=== PATIENT | female | born 2000 | race Caucasian/White ===

== ENCOUNTER → 2023-01-12 09:53 | Outpatient (CLI) | payer BC, SELFPAY ==
--- NOTE | ~2023-01-12 | US_ITS ---
Thyroid ultrasound. Clinical History: Enlarged thyroid gland Findings: Real-time sonography of the thyroid gland was performed. The right lobe measures 5.2 x 1.5 x 1.3 cm. The left lobe measures 5.0 x 1.3 x 1.5 cm. The isthmus is 5 mm in AP diameter. Thyroid parenchyma is homogeneous. No thyroid nodule identified. Impression: Unremarkable exam. Reviewed, dictated and finalized at location . Impression: Unremarkable exam.
== END ==
PROVIDERS: PCP Registered Nurse; Visit Provider Registered Nurse
DX: E04.9 Nontoxic goiter, unspecified (principal)
CPT/HCPCS: 76536

== ENCOUNTER → 2023-01-14 10:53 | Outpatient (CLI) | payer BC, SELFPAY ==
--- NOTE | ~2023-01-14 | US_ITS ---
EXAMINATION: US OB <=14 wk fetus w TV DATE: 01/14/2023 11:24 INDICATION: First trimester dating TECHNIQUE: Real-time pelvic transabdominal and transvaginal ultrasound was performed. COMPARISON: None. FINDINGS: The uterus measures 9.2 x 4.7 x 6 cm. There is an intrauterine gestational sac. A yolk sac is identified. heart motion is identified measuring 142 beats per minute (bpm) by M-mode Dopple r. The crown rump length measures 9 mm, which correlates with an estimated gestational age of 6 weeks and 6 day(s) (+/-) 4 day(s). The ovaries are not visualized however no adnexal abnormality is seen. There is no free fluid in the pelvis. IMPRESSION: 1. Live intrauterine with an estimated gestational age of 6 weeks and 6 day(s) (+/-) 4 day( s) and an estimated delivery date of 09/03/2023. Reviewed, dictated and finalized at location A. IMPRESSION: 1. Live intrauterine with an estimated gestational age of 6 weeks and 6 day(s) (+/-) 4 day(s) and an estimated delivery date of 09/03/2023.
== END ==
PROVIDERS: PCP Registered Nurse; Visit Provider Registered Nurse
DX: Z36.9 Encounter for antenatal screening, unspecified (principal); Z3A.01 Less than 8 weeks gestation of pregnancy
CPT/HCPCS: 76801; 76817

== ENCOUNTER 2023-04-06 15:24 | Outpatient (CLI) | payer BC, SELFPAY ==
--- NOTE | 2023-04-06 15:52 | ECG_ITS ---
Measurements Intervals [place] Rate: 79 P: 5 W[place]: 156 QRS: 60 QRSD: 86 T: 34 QT: 360 QTc: 413 Interpretive Statements SINUS RHYTHM RSR' IN V1 OR V2, PROBABLY NORMAL VARIANT BORDERLINE ECG NO PREVIOUS ECG AVAILABLE FOR COMPARISON Electronically Signed On 04-06-2023 16:13:40 CDT by Leodan Souza D.O.
--- NOTE | 2023-04-12 07:44 | WPDHOLTEREM ---
Holter/Event Monitor Holter/Event Monitor Date of procedure: 04/06/23 Holter/Event Procedure: 24 Hr Holter Monitor Indications: Palpitations Conclusion: 1. 24 hour holter monitor on 04/06/23. 2. Underlying rhythm is sinus rhythm. HR range 54-148 bpm; average 90 bpm. HR at 148 bpm was at 07:03. 3. There are 12 premature supraventricular complexes. No supraventricular tachycardia. 4. No premature ventricular complexes. No ventricular tachycardia. 5. No sinoatrial or atrioventricular blocks. No significant pauses greater than 2 seconds. 6. No symptoms available for correlation.
== END 2023-04-06 15:25 | disposition home or self-care (01) ==
PROVIDERS: PCP Registered Nurse; Visit Provider Registered Nurse
DX: R00.2 Palpitations (principal)
CPT/HCPCS: 36415; 84443; 93005; 93225; 93226

== ENCOUNTER 2023-08-10 08:45 | Outpatient (CLI) | payer BC, SELFPAY ==
--- NOTE | ~2023-08-10 | US_ITS ---
EXAMINATION: US OB limited DATE: 08/10/2023 11:55 INDICATION: Leakage of fluid. Third trimester. TECHNIQUE: Real-time ultrasound of the pelvis was performed. COMPARISON: Ultrasound 01/14/2023 FINDINGS: There is a single fetus in vertex presentation. The placenta is anterior. heart rate is 130 be ats per minute (bpm). The amniotic fluid index is 13.6 cm, which is normal. IMPRESSION: 1. Single living fetus in vertex presentation. 2. Normal amniotic fluid index. Reviewed, dictated and finalized at location A. INER TENDER
[2023-08-10 09:18] VITALS: BP 115/71; PULSE 103; PULSE 99; RESP 16; TEMP 37
[2023-08-10 09:34] VITALS: BP 115/71; PULSE 103
--- NOTE | 2023-08-10 10:32 | PC.NURSE ---
Dr. Mcginnis returned page and informed of reactive NST, ROM plus was negative, and RAVI 13.6 cm. OK to discharge to home.
== END 2023-08-10 10:35 | disposition home or self-care (01) ==
LOC: ANHOBOP 08:48 → ANHLDR 08:49
PROVIDERS: Visit Provider Obstetrics & Gynecology
DX: O42.90 Premature rupture of membranes, unspecified as to length of time between rupture and onset of labor, unspecified weeks of gestation (principal); Z3A.00 Weeks of gestation of pregnancy not specified
CPT/HCPCS: 59025; 76815; 84112; 99199

== ENCOUNTER 2023-08-18 16:03 | Outpatient (RCR) | payer BC, SELFPAY ==
[2023-08-18 16:33] VITALS: BP 116/71; PULSE 84
== END 2023-11-02 23:59 | disposition home or self-care (01) ==
LOC: ANHOBOP 16:03
PROVIDERS: Visit Provider Obstetrics & Gynecology
DX: O36.8330 Maternal care for abnormalities of the fetal heart rate or rhythm, third trimester, not applicable or unspecified (principal); Z3A.36 36 weeks gestation of pregnancy; O36.63X0 Maternal care for excessive fetal growth, third trimester, not applicable or unspecified; Z3A.38 38 weeks gestation of pregnancy
CPT/HCPCS: 59025

== ENCOUNTER 2023-08-20 19:17 | Inpatient (IN) | payer BC, SELFPAY ==
[2023-08-20] VITALS (13 sets, daily range): BP systolic 109–148; BP diastolic 62–93; PULSE 83–119; RESP 15–17; TEMP 36.8–36.9; BMI 30.4
--- NOTE | 2023-08-20 19:17 | LDADM ---
This patient, Leona Barnett, was admitted to Labor/Delivery/Recovery 104 on 08/20/23 at 19:17. Plans for labor, pain management and were discussed with patient. Patient/family oriented to hospital policies and general routines including ID bracelet, bed and alarms, visiting hours, pain management, procedures, bathroom and other care routines, personal items, smoking policy, room service/diet and guest tray routines, infant security routines, and visiting hours. Patient/Family are encouraged to report perceived risks to care and to ask questions if they do not understand what they are told or what they should do. See OBIX for further documentation.
[2023-08-20 20:13] LABS: Basophils Percent Auto 0.4 % (0.2-1.2); Eosinophils Absolute Auto 0.1 K/mm3 (0-0.3); Eosinophils Percent Auto 0.9 % (0-4.4); Hematocrit 35.9 % (37.0-47.0); Hemoglobin 11.6 g/dL (12.0-15.0); Immature Granulocyte Absolute 0.19 K/mm3 (0.00-0.031); Immature Granulocyte Percent A 1.8 % (0-0.5); Lymphocytes Absolute Auto 2.22 K/mm3 (0.9-3.2); Mean Corpuscular HGB Conc 32.3 g/dl (32-36); Mean Corpuscular Hemoglobin 29.1 pg (26-34); Mean Platelet Volume 10.3 fl (7.4-10.4); Monocytes Absolute Auto 0.8 K/mm3 (0.1-0.6); Neutrophils Absolute Auto 7.2 K/mm3 (1.3-6.7); Neutrophils Percent Auto 67.9 % (45.5-73.1); Platelet Count Result 195 k/mm3 (150-375); Red Blood Count 3.99 M/mm3 (4.2-5.4); Red Cell Distribution Width 13.2 % (11.5-14.5); White Blood Count 10.6 K/mm3 (4.5-10.0)
[2023-08-20 20:25] LABS: Alanine Aminotransferase 21 U/L (6-35); Albumin Level 3.6 g/dL (3.5-5.1); Alkaline Phosphatase 155 U/L (38-126); Anion Gap 6 mmol/L (8-16); Aspartate Amino Transferase 25 U/L (14-36); Bilirubin,Total 0.2 mg/dL (0.2-1.3); Blood Urea Nitrogen 8 mg/dL (7-17); Carbon Dioxide 22 mmol/L (22-30); Chloride 108 mmol/L (98-107); Estimated Glomerular Filt Rate > 60; Glucose 94 mg/dL (65-110); Potassium 3.6 mmol/L (3.4-5.0); Sodium 136 mmol/L (137-145)
[2023-08-20 21:05] LABS: HIV 1/2 Ab P24 Ag Result Negative (Negative)
[2023-08-20] MEDS: LACTATED RINGERS 1,000 ML 125 ML IV CONT (21:20)
[2023-08-20] MEDS: OXYTOCIN 30 UNITS/NS 500 ML 30 UNITS/500 ML BAG 6 UNITS IV CONT (21:20)
[2023-08-21] VITALS (315 sets, daily range): BP systolic 97–222; BP diastolic 42–200; PULSE 82–144; RESP 15–19; TEMP 36.6–38.6; O2SAT 95–100
[2023-08-21] MEDS: LACTATED RINGERS 1,000 ML 125 ML IV CONT ×3 (01:25→14:59)
--- NOTE | 2023-08-21 01:31 | WPDANESEPP ---
Anes - Eval Pre Procedure Procedure: labor epidural Date/Time: 08/21/23 01:31 Surgeon: lesly Preop Diagnosis: pain during labor Pre Op Diagnosis: Leaking Patient Data Age: 23 Gender: F Height: 1.6 m Weight: 78 kg Last Vital Signs Temp 36.9 C 08/21/23 00:26 Pulse 89 08/21/23 00:31 Resp 16 08/21/23 00:26 BP 118/61 08/21/23 00:31 Pulse Ox 98 08/21/23 01:31 O2 Del Method Room Air 08/20/23 20:26 Allergies Allergy/AdvReac Type Severity Reaction Status Date / Time shellfish derived Allergy Intermediate Swelling Verified 08/20/23 20:34 of Lip/Tongue/Throat Home Medications Medication Instructions Recorded Confirmed Type albuterol sulfate 90 mcg/actuation 1 puff inhalation Q4H PRN 12/30/21 08/12/23 History aerosol inhaler Shortness Of Breath prenat.vits,casey,[id number] 1 tablet PO DAILY 01/07/23 08/20/23 History cholecalciferol (vitamin D3) 50 50 mcg PO DAILY 03/17/23 08/20/23 History mcg (2,000 unit) capsule ferrous sulfate 325 mg (65 mg 325 mg PO DAILY 06/09/23 08/20/23 History iron) tablet magnesium 200 mg tablet 400 mg PO DAILY 08/10/23 08/20/23 History Laboratory Tests 08/20/23 20:05 WBC 10.6 H K/mm3 (4.5-10.0) RBC 3.99 L M/mm3 (4.2-5.4) Hgb 11.6 L g/dL (12.0-15.0) Hct 35.9 L % (37.0-47.0) MCV 90.0 fl (80-100) MCH 29.1 pg (26-34) MCHC 32.3 g/dl (32-36) RDW 13.2 % (11.5-14.5) Plt Count 195 k/mm3 (150-375) MPV 10.3 fl (7.4-10.4) Immature Gran % (Auto) 1.8 H % (0-0.5) Neut % (Auto) 67.9 % (45.5-73.1) Lymph % (Auto) 21.0 % (18.3-44.2) [place] % (Auto) 8.0 % (2.6-8.5) Eos % (Auto) 0.9 % (0-4.4) Baso % (Auto) 0.4 % (0.2-1.2) Lymph # (Auto) 2.22 K/mm3 (0.9-3.2) [place] # (Auto) 0.8 H K/mm3 (0.1-0.6) Eos # (Auto) 0.1 K/mm3 (0-0.3) Baso # (Auto) 0.0 K/mm3 (0.0-0.1) Abs Immat Gran (auto) 0.19 H K/mm3 (0.00-0.031) Absolute Neuts (auto) 7.2 H K/mm3 (1.3-6.7) Absolute Nucleated RBC 0.0 K/mm3 (0.0-0.012) Nucleated RBC % 0.0 % (0.0-0.2) Sodium 136 L mmol/L (137-145) Potassium 3.6 mmol/L (3.4-5.0) Chloride 108 H mmol/L (98-107) Carbon Dioxide 22 mmol/L (22-30) Anion Gap 6 L mmol/L (8-16) BUN 8 mg/dL (7-17) Creatinine 0.50 L mg/dL (0.7-1.0) Estim Creat Clear Calc Not Reportable Estimated GFR > 60 (59 - ) Glucose 94 mg/dL (65-110) Uric Acid 4.0 mg/dL (2.5-7.5) Calcium 9.0 mg/dL (8.4-10.2) Total Bilirubin 0.2 mg/dL (0.2-1.3) AST 25 U/L (14-36) ALT 21 U/L (6-35) Alkaline Phosphatase 155 H U/L (38-126) Total Protein 6.0 L g/dL (6.3-8.2) Albumin 3.6 g/dL (3.5-5.1) RPR Pending HIV 1&2 Ab/P24 Ag 4thGn Negative (Negative) Blood Type O Positive Antibody Screen Negative Patient hx anesthesia problems: none Family hx anesthesia problems: none Results Review: All pre-operative results and documents have been reviewed as part of the pre-operative evaluation. REPLACED BY [facility] Past Medical History Medical History Asthma Encounter for related examination in second trimester Encounter for supervision of normal first in third trimester Heart palpitations Family History Family History Mother Alcoholism Sibling Depression Grandparent Alcoholism Diabetes mellitus Heart disease Social History Social History Smoking status: Never smoker Alcohol intake: former Alcohol use details: Not since Substance use: never Do You Feel Safe in your Home?: Yes Lack of Transportation: No Lack of Food: Never True Current Housing: I Have Housing Concerned About Future Housing: No Difficulty Paying G
--- NOTE | 2023-08-21 09:27 | PM.OBPNVD ---
OB - PN: Subj Subjective Date/time seen: 08/21/23 09:27 Interval history: fht 135, cat 1, irreg ctx, IUPC recently placed. Continue Pitocin. OB - PN: Obj Data Labs 08/20/23 20:05 08/20/23 20:05 Labs: Laboratory Results - last 24 hr 08/20/23 20:05 WBC 10.6 H RBC 3.99 L Hgb 11.6 L Hct 35.9 L MCV 90.0 MCH 29.1 MCHC 32.3 RDW 13.2 Plt Count 195 MPV 10.3 Immature Gran % (Auto) 1.8 H Neut % (Auto) 67.9 Lymph % (Auto) 21.0 [place] % (Auto) 8.0 Eos % (Auto) 0.9 Baso % (Auto) 0.4 Lymph # (Auto) 2.22 [place] # (Auto) 0.8 H Eos # (Auto) 0.1 Baso # (Auto) 0.0 Abs Immat Gran (auto) 0.19 H Absolute Neuts (auto) 7.2 H Absolute Nucleated RBC 0.0 Nucleated RBC % 0.0 Sodium 136 L Potassium 3.6 Chloride 108 H Carbon Dioxide 22 Anion Gap 6 L BUN 8 Creatinine 0.50 L Estim Creat Clear Calc Not Reportable Estimated GFR > 60 Glucose 94 Uric Acid 4.0 Calcium 9.0 Total Bilirubin 0.2 AST 25 ALT 21 Alkaline Phosphatase 155 H Total Protein 6.0 L Albumin 3.6 HIV 1&2 Ab/P24 Ag 4thGn Negative Blood Type O Positive Antibody Screen Negative OB - PN A/P Time Spent With Patient Time: Total time spent is greater than 50% in coordination of care (as documented) at patient's floor/unit and/or counseling patient:
--- NOTE | 2023-08-21 09:28 | PM.IMHP ---
H&P: HPI History of Present Illness Date/Time: 08/21/23 09:28 Chief Complaint: Leaking of fluid Narrative: Patient presented with c/o leaking of clear fluid at approximately 1800 on 08/20/22. Confirmed SROM on L and D. Cervix 1 cm, thick. PNC significant for LGA, normal glucose testing x 2, last ultrasound for growth 08/19- 4100gm. Labs reviewed. GBS neg. Review of Systems Review of Systems: All systems reviewed & are unremarkable except as noted in HPI and below Constitutional: Constitutional: Reports no additional constitutional complaints and Denies headache(s) Eyes: Eyes: Denies spots in vision ENT: Reports system reviewed and no additional complaints, except as documented and Denies headache(s) Cardiovascular: Cardiovascular: Denies chest pain and Denies dyspnea Respiratory: Respiratory: Denies dyspnea Gastrointestinal: Gastrointestinal: Reports no additional gastrointestinal complaints Genitourinary: Genitourinary: Reports amenorrhea Musculoskeletal: Musculoskeletal: Reports no additional musculoskeletal complaints Integumentary/Breasts: Skin/Breast: Denies breast mass and Denies rash Neurologic: Denies headache(s) Psychiatric: Psychiatric: Reports no additional psychiatric complaints [facility] Past Medical History Medical History Asthma Encounter for related examination in second trimester Encounter for supervision of normal first in third trimester Heart palpitations Family History Family History Mother Alcoholism Sibling Depression Grandparent Alcoholism Diabetes mellitus Heart disease Social History Social History Smoking status: Never smoker Alcohol intake: former Alcohol use details: Not since Substance use: never Do You Feel Safe in your Home?: Yes Lack of Transportation: No Lack of Food: Never True Current Housing: I Have Housing Concerned About Future Housing: No Difficulty Paying Gas/Electric Bills: No Difficulty Paying for Meds: No Currently Unemployed: No Education: Bachelor's Degree Difficulty w/ Childcare or Family Care: No Living arrangements: with family Occupation/Education: occupation Gender identity (if verbalized by the patient): Female Sexual Orientation (if Verbalized by the Patient): Straight or Heterosexual Spiritual care concerns: No Meds Home Medications and Allergies Home Medications Medication Instructions Recorded Confirmed Type albuterol sulfate 90 mcg/actuation 1 puff inhalation Q4H PRN 12/30/21 08/12/23 History aerosol inhaler Shortness Of Breath prenat.vits,casey,[id number] 1 tablet PO DAILY 01/07/23 08/20/23 History cholecalciferol (vitamin D3) 50 50 mcg PO DAILY 03/17/23 08/20/23 History mcg (2,000 unit) capsule ferrous sulfate 325 mg (65 mg 325 mg PO DAILY 06/09/23 08/20/23 History iron) tablet magnesium 200 mg tablet 400 mg PO DAILY 08/10/23 08/20/23 History Allergies Allergy/AdvReac Type Severity Reaction Status Date / Time shellfish derived Allergy Intermediate Swelling Verified 08/20/23 20:34 of Lip/Tongue/Throat Vital Signs Vital Signs - 24 hr 08/20/23 19:27 08/20/23 19:31 08/20/23 19:32 Temperature Pulse Rate 119 H 110 H 92 Respiratory Rate Blood Pressure 148/78 H 127/93 H 134/67 Pulse Oximetry Oxygen Delivery 08/20/23 20:31 08/20/23 20:59 08/20/23 21:27 Temperature 98.3 F Pulse Rate 100 96 Respiratory Rate 15 Blood Pressure 113/62 124/75 Pulse Oximetry Oxygen Delivery 08/20/23 19:28 08/20/23 21:31 08/20/23 22:01 Temperature 98.4 F Pulse Rate 95 92 Respiratory Rate 17 Blood Pressure 126/83 118/77 Pulse Oximetry Oxygen Delivery 08/20/23 22:31 08/20/23 23:08 08/20/23 22:52 Temperature 98.5 F Puls
[2023-08-21] MEDS: AMPICILLIN 2 GM/NS 100 ML 2 GM/100 ML BAG IVPB (12:01)
[2023-08-21] MEDS: AMPICILLIN 1 GM/NS 50 ML 1 GM/50 ML BAG IVPB ×2 (16:08→21:00)
[2023-08-21] MEDS: GENTAMICIN SULFATE INJ 390 MG in DEXTROSE 5% 100 ML 109.75 MG IVPB (16:57)
--- NOTE | 2023-08-21 17:12 | PM.OBPNVD ---
OB - PN: Subj Subjective Date/time seen: 08/21/23 17:12 Interval history: fht 150s, cat 2, temp 101, she has been pushing for over an hour, cervix C/C/0 and no descent, large caput, chorioamnionitis. She has been recommended for section for failure to progress. Discussed risk benefit of section and discussed that if she continues to push and no change then higher risk of distress, infection, bleeding. She agrees with section for failure to progress. OB - PN: Obj Data Labs 08/20/23 20:05 08/20/23 20:05 Labs: Laboratory Results - last 24 hr 08/20/23 20:05 WBC 10.6 H RBC 3.99 L Hgb 11.6 L Hct 35.9 L MCV 90.0 MCH 29.1 MCHC 32.3 RDW 13.2 Plt Count 195 MPV 10.3 Immature Gran % (Auto) 1.8 H Neut % (Auto) 67.9 Lymph % (Auto) 21.0 [place] % (Auto) 8.0 Eos % (Auto) 0.9 Baso % (Auto) 0.4 Lymph # (Auto) 2.22 [place] # (Auto) 0.8 H Eos # (Auto) 0.1 Baso # (Auto) 0.0 Abs Immat Gran (auto) 0.19 H Absolute Neuts (auto) 7.2 H Absolute Nucleated RBC 0.0 Nucleated RBC % 0.0 Sodium 136 L Potassium 3.6 Chloride 108 H Carbon Dioxide 22 Anion Gap 6 L BUN 8 Creatinine 0.50 L Estim Creat Clear Calc Not Reportable Estimated GFR > 60 Glucose 94 Uric Acid 4.0 Calcium 9.0 Total Bilirubin 0.2 AST 25 ALT 21 Alkaline Phosphatase 155 H Total Protein 6.0 L Albumin 3.6 HIV 1&2 Ab/P24 Ag 4thGn Negative Blood Type O Positive Antibody Screen Negative OB - PN A/P Time Spent With Patient Time: Total time spent is greater than 50% in coordination of care (as documented) at patient's floor/unit and/or counseling patient:
[2023-08-21] MEDS: CLINDAMYCIN 900 MG/D5W 50 ML 900 MG/50 ML PIGGYBACK 50 MG IVPB (17:21)
--- NOTE | 2023-08-21 18:24 | P.PCNOB_ITS ---
OB - Delivery Note Procedure Delivery date: 08/21/23 Pre-op diagnosis: Arrest of Decent and Chorioamniontis Post-op Diagnosis: Same Delivery augmentation: Pitocin Delivery monitor: External FHT and Internal FHT Prior to decision for section, ACOG/SM labor guidelines were considered and discussed with the patient and staff. Decision made to proceed with the section.: Yes Procedure Performed: Primary Surgeon: Dc Mcginnis MD Anesthesia type: Epidural Description of Procedure/Findings: Female infant 8lbs, OP Specimen: No Estimated Blood Loss: 850 Drains: No Packing: No Pathology: Yes (Placenta and cord) Complications: No immediate complications Condition: Stable Disposition: Floor [place] Baby Date of : 08/21/23 Weeks of gestation at delivery: 39 Infant gender: Female Weight (pounds): 8 Weight (ounces): 0 presentation: vertex position: Right Occiput Posterior Placenta delivery description: Expressed and Manual Removal Cord Vessel Description: Nuchal Cord (one), Loose and Reduced score one minute: 7 score five minutes: 9 Narrative: She was admitted to L and D after confirmation of SROM. Clear fluid. Cervix one cm. Irregular mild contractions. Pitocin was started. She had isolated increase blood pressure on admission and had normal PIH labs, blood pressures improved. She made progression. Ampicillin was added due to prolonged rupture of membranes. She dilated to complete and pushed for over an hour and no descent of head. Large caput. O station. She also developed tachycardia and fever of 101. Gentamicin and Clindamycin was added prior to section. [facility] Delivery Billing Delivery Delivery: Delivery Charge
--- NOTE | 2023-08-21 18:30 | P.OP_ITS ---
Procedure Note - Detailed Date of Procedure 08/21/23 Pre-op Diagnosis Failure to descend. Prolonged rupture of membranes. Chorioamnionitis. Post-op Diagnosis Same Procedure Performed Primary low transverse section. Surgeon Dc Mcginnis MD Business Banking Relationship Manager Erin Anesthesia Epidural Indications Failure to descend. Findings Female , 8lbs, ROP position. Normal fallopian tube and ovaries. Description of Procedure After informed consent, risks and benefits of the procedure was discussed with the patient. The patient was taken to the operating room where she was placed in the dorsal lithotomy position with leftward tilt. After the prior placed epidural anesthesia was found to be adequate, she was then prepped and draped in the usual sterile fashion. A Pfannenstiel skin incision was made with a scalpel and carried through to the underlying layer of fascia. The fascia was then nicked in the midline, extending bilaterally. The fascia was dissected off the rectus muscles bluntly and sharply, superiorly and inferiorly. The rectus muscles were in the midline, and peritoneum was identified and entered bluntly. The pelvic organs were visualized. The bladder blade was then inserted. The vesicouterine peritoneum was identified and entered sharply with Metzenbaum scissors and extended bilaterally and then the bladder flap was created digitally. The low transverse uterine incision was then made with the scalpel and extended with bilateral index fingers in a crescent-shaped fashion. The head was delivered and the rest of the infant was delivered. The nose and mouth suctioned with bulb. The nuchal cord was reduced manually, the cord was doubly clamped and cut. The was handed to nursery staff. The placenta was then delivered manually. The uterine cavity was sponge curetted. The uterus was then exteriorized. The uterine incision had an extension to the right. The incision was closed with 2 sutures with 0 vicryl in a running locked fashion. A figure of eight of 0 vicryl at the right of incision was used for hemostasis. Hemostasis noted. A second layer of 0 vicryl was used in an imbricating fashion for hemostasis. The posterior cul de sac irrigated. The uterus was then returned to the abdomen. Bilateral gutters were cleared off all clots and debris and irrigated. The uterine incision was noted to be hemostatic. Interceed placed on uterine incision and vertically on front of uterus. The muscle bellies were inspected and noted to be hemostatic. The subfascial layer was noted to be hemostatic, and the fascia was closed with 0 Vicryl in a running fashion. The subcutaneous layer was irrigated then approximated with 3-0 Vicryl. The skin was closed with Ensorb.D ermabond applied at incision. Dressing applied. All instruments, needle, and lap counts were correct x3. The patient was taken to the recovery room in stable condition. Estimated Blood Loss 925 Drains No Packing No Pathology Yes (placenta and cord) Complications No immediate complications Condition Stable Disposition Floor [facility] Billing Surgery - Charge Forward: Surgery Billing
[2023-08-21] MEDS: KCL 20 MEQ/D5/0.45% SOD CHL 1,000 ML 125 ML IV CONT (21:00)
--- NOTE | 2023-08-21 22:02 | OBPPTRN ---
08/21/2023 at 2105 Patient transferred on stretcher to post room #282. Support person, (patient's mother in law, FOB had to run an errand), present. Patient and support person oriented to unit, room, information board, rooming in, admission packet and security measures. Patient verbalizes understanding.
[2023-08-21] MEDS: diphenhydrAMINE HCl INJ 50 MG/ML VIAL 25 MG IV PUSH (23:41)
[2023-08-22] MEDS: AMPICILLIN 1 GM/NS 50 ML 1 GM/50 ML BAG IVPB ×5 (01:01→16:34)
[2023-08-22] MEDS: CLINDAMYCIN 900 MG/D5W 50 ML 900 MG/50 ML PIGGYBACK 50 MG IVPB ×3 (01:48→17:15)
[2023-08-22 03:48] VITALS: BP 107/62; PULSE 94; RESP 16; TEMP 36.7; O2SAT 97
[2023-08-22 04:18] LABS: Basophils Absolute Auto 0.1 K/mm3 (0.0-0.1); Basophils Percent Auto 0.3 % (0.2-1.2); Eosinophils Percent Auto 0.1 % (0-4.4); Hemoglobin 8.7 g/dL (12.0-15.0); Immature Granulocyte Percent A 0.6 % (0-0.5); Lymphocytes Absolute Auto 1.52 K/mm3 (0.9-3.2); Mean Corpuscular HGB Conc 32.2 g/dl (32-36); Mean Platelet Volume 10.1 fl (7.4-10.4); Monocytes Absolute Auto 0.9 K/mm3 (0.1-0.6); Monocytes Percent Auto 5.5 % (2.6-8.5); Neutrophils Absolute Auto 14.3 K/mm3 (1.3-6.7); Neutrophils Percent Auto 84.5 % (45.5-73.1); Platelet Count Result 145 k/mm3 (150-375); Red Cell Distribution Width 13.5 % (11.5-14.5); White Blood Count 16.9 K/mm3 (4.5-10.0)
[2023-08-22 04:36] LABS: Estimated CRCL calculation 84 ml/min; Estimated Glomerular Filt Rate > 60
[2023-08-22 04:46] LABS: Gentamicin Random 0.9 ug/mL (5.0-12.0)
[2023-08-22] MEDS: KETOROLAC 30 MG/ML VIAL (*BKC) IV PUSH ×2 (06:32→12:34)
[2023-08-22] MEDS: LIDOCAINE 5% PATCH 1 PATCH TRANSDERM (06:33)
[2023-08-22 07:35] VITALS: BP 97/51; PULSE 96; RESP 16; TEMP 36.8; O2SAT 98
[2023-08-22] MEDS: KCL 20 MEQ/D5/0.45% SOD CHL 1,000 ML 125 ML IV CONT (08:34)
--- NOTE | 2023-08-22 09:23 | PM.OBPNVD ---
OB - PN: Subj Subjective Date/time seen: 08/22/23 09:23 Interval history: fht 150s, cat 2, temp 101, she has been pushing for over an hour, cervix C/C/0 and no descent, large caput, chorioamnionitis. She has been recommended for section for failure to progress. Discussed risk benefit of section and discussed that if she continues to push and no change then higher risk of distress, infection, bleeding. She agrees with section for failure to progress. OB - PN: Obj Data Labs 08/22/23 04:01 08/22/23 04:01 Labs: Laboratory Results - last 24 hr 08/22/23 04:01 WBC 16.9 H RBC 3.00 L Hgb 8.7 L Hct 27.0 L MCV 90.0 MCH 29.0 MCHC 32.2 RDW 13.5 Plt Count 145 L MPV 10.1 Immature Gran % (Auto) 0.6 H Neut % (Auto) 84.5 H Lymph % (Auto) 9.0 L [place] % (Auto) 5.5 Eos % (Auto) 0.1 Baso % (Auto) 0.3 Lymph # (Auto) 1.52 [place] # (Auto) 0.9 H Eos # (Auto) 0.0 Baso # (Auto) 0.1 Abs Immat Gran (auto) 0.10 H Absolute Neuts (auto) 14.3 H Absolute Nucleated RBC 0.0 Nucleated RBC % 0.0 Creatinine 0.90 Estim Creat Clear Calc 84 Estimated GFR > 60 Random Gentamicin 0.9 L OB - PN A/P Assessment and Plan (1) Delivery by section: Status: Acute Assessment and Plan: POD1 Doing well. Routine post op care. Post op anemia. Iron supplementation. Time Spent With Patient Time: Total time spent is greater than 50% in coordination of care (as documented) at patient's floor/unit and/or counseling patient: Exam Const: General: comfortable and no acute distress Resp: Effort & Inspection: normal respiratory effort GI: Other: incision intact, fundus at umbilicus nontender Extrem: Other: nontender tr edema Psych: Mental Status: mental status grossly normal Affect: normal affect
[2023-08-22] MEDS: CHOLECALCIFEROL 1,000 UNITS TABLET 2000 UNITS PO (10:09)
[2023-08-22] MEDS: POLYSACCHARIDE IRON COMPLEX 150 MG CAPSULE PO ×2 (10:09→16:32)
[2023-08-22] MEDS: DOCUSATE SODIUM 100 MG CAPSULE PO ×2 (10:10→16:32)
[2023-08-22] MEDS: MULTIVIT/MIN/PREN/FOL AC/IRON TABLET 1 TAB PO (10:10)
--- NOTE | 2023-08-22 10:17 | WPDANLDPN2 ---
Anes-Prog Note L&D Date/Time: 08/22/23 10:17 Comfortable throughout: section Neuraxial method: epidural Epidural/Spinal procedure site: clean & non-tender Neuro status: Neuro function grossly intact. Cardiovascular status: normal Respiratory status: normal Airway patency: baseline Mental status: baseline Post-Op hydration status: normal Vital Signs: Last Vital Signs Temp 36.8 C 08/22/23 07:35 Pulse 96 08/22/23 07:35 Resp 16 08/22/23 07:35 BP 97/51 L 08/22/23 07:35 Pulse Ox 98 08/22/23 07:35 O2 Del Method Room Air 08/21/23 20:30 Pain score (VAS): 0/10 I/O: Intake & Output 08/21/23 08/22/23 08/22/23 23:59 07:59 15:59 Intake Total 1459.75 1450 Output Total 1278 1300 Balance 181.75 150 Post-procedural complaints: none Patient feedback: Patient satisfied with anesthetic care.
--- NOTE | 2023-08-22 10:17 | WPDANLDNPN2 ---
Anes-Prog Note L&D-Neuraxial Date/Time: 08/22/23 10:17 Neuraxial medications: epidural PF morphine Opiod-related complaints: pruritis moderate, treatment effective Patient feedback: Patient satisfied with post-operative pain management.
[2023-08-22 12:44] VITALS: BP 102/58; PULSE 95; RESP 16; TEMP 36.8; O2SAT 99
[2023-08-22 13:53] LABS: Rapid Plasma Reagin Non-Reactive (NonReactive)
[2023-08-22] MEDS: HYDROcodone/acetaminophen (*CRX) 5-325 MG TABLET 1 TAB PO (16:33)
[2023-08-22] MEDS: GENTAMICIN SULFATE INJ 390 MG in DEXTROSE 5% 100 ML 109.75 MG IVPB (17:58)
[2023-08-22] MEDS: IBUPROFEN 600 MG TABLET PO (19:58)
[2023-08-23] MEDS: HYDROcodone/acetaminophen (*CRX) 5-325 MG TABLET 1 TAB PO ×4 (00:22→16:21)
[2023-08-23] MEDS: IBUPROFEN 600 MG TABLET PO ×2 (05:02→16:21)
[2023-08-23 08:25] VITALS: BP 105/65; PULSE 88; RESP 18; TEMP 36.4; O2SAT 99
[2023-08-23] MEDS: CHOLECALCIFEROL 1,000 UNITS TABLET 2000 UNITS PO (08:26)
[2023-08-23] MEDS: POLYSACCHARIDE IRON COMPLEX 150 MG CAPSULE PO ×2 (08:26→16:21)
[2023-08-23] MEDS: MULTIVIT/MIN/PREN/FOL AC/IRON TABLET 1 TAB PO (08:27)
[2023-08-23] MEDS: DOCUSATE SODIUM 100 MG CAPSULE PO ×2 (08:27→16:21)
--- NOTE | 2023-08-23 17:35 | PC.NURSE ---
Patient viewed the discharge video Mother & Baby Care, The First Two Weeks . Patient was given the opportunity and encouraged to ask questions. Patient verbalized understanding of information shared and has been given the mother/baby guide for home reference.
[2023-08-23 19:00] VITALS: BP 105/58; PULSE 98; RESP 18; TEMP 36.7; O2SAT 98
[2023-08-24 07:45] VITALS: BP 120/78; PULSE 87; RESP 16; TEMP 37.1; O2SAT 98
--- NOTE | 2023-08-24 08:21 | PM.OBPNVD ---
OB - PN: Subj Subjective Date/time seen: 08/24/23 08:21 Interval history: She has ambulated without problems, adequate pain control. Patient comments: pain well controlled; no incisional pain [place] baby status: doing well and bottle feeding well OB - PN: Obj Data Labs 08/22/23 04:01 08/22/23 04:01 OB - PN A/P Assessment and Plan (1) Delivery by section: Status: Acute Assessment and Plan: POD3. Doing well. Discharge today. Discharge precautions discussed. Time Spent With Patient Time: Total time spent is greater than 50% in coordination of care (as documented) at patient's floor/unit and/or counseling patient: Exam Const: General: comfortable and no acute distress Resp: Effort & Inspection: normal respiratory effort GI: Inspection: normal to inspection Other: uterus below fundus firm nontender, incision intact no drainage Extrem: General: normal to inspection and no calf tenderness Psych: Mental Status: mental status grossly normal Affect: normal affect
--- NOTE | 2023-08-24 08:26 | PM.OBDSVD ---
DS: Admitting Diagnosis Discharge Date 08/24/23 Admitting Diagnosis Premature rupture of membranes DS: Discharge Diagnosis Discharge Diagnosis (1) Failure of descent in labor, delivered, current hospitalization: Code(s): O62.2 - Other uterine inertia Status: Acute OB - DS: Summary Hospital Course Hospital Course: She was admitted for rupture of membranes. She had Pitocin augmentation. She dilated and fully. She pushed and did not make any descent and she underwent an uncomplicated primary section for failure to descend. She did well postoperatively on postop day 1 she was tolerating regular diet ambulating well had adequate pain control with oral medication had positive flatus. She did well on postop day 2. And 3 and was discharged home on postop day 3. OB Procedures : Ultrasound OB Procedures Intrapartum: OB Procedures: : None Peripartum Data Procedures: Procedures Operation Date: 08/21/23 17:30 Actual Procedure Side Surgeon p Section Bilateral Dc Mcginnis MD complications: none Status at Discharge Functional status at discharge: independent ambulation Time Spent with Patient Time attestation: Total time spent providing and/or coordinating discharge services: Exam Const: General: cooperative Orientation/consciousness: oriented to person, oriented to place and oriented to time HENMT: Face/Nose/Sinus: Normal external nose present Eyes: General: appearance normal, both eyes and all related structures Resp: Effort & Inspection: normal respiratory effort GI: Inspection: normal to inspection Skin: General skin exam: normal color Neuro: General: oriented to person, oriented to place and oriented to time Extrem: General: normal to inspection and no calf tenderness Psych: Appearance: grossly normal Mental Status: mental status grossly normal DS: Data Data Completed and Pending Pending studies at discharge: Pending at discharge 08/21/23 18:21 Surgical [PTH] Routine Discharge Plan Discharge Attending physician on discharge: Dc Mcginnis Consulting providers: Shala Lozano; Sheela Ji Discharging Clinician: Dc Mcginnis Patient Disposition: Home, Self-Care Activity: may shower Diet: regular Discharge Instructions: Education: Mom and Baby Guide Given to: Mother Follow-Up: Call your delivering provider's office for an appointment to be seen in: 4 Weeks Mom and baby should come to the [facility] for the follow-up appointment. Appointment Date/Time: August 25, 2023 at 10:00 am What to expect at your follow-up visit: Blood Pressure Check Physical Assessment Call [phone] if you are unable to keep your appointment time. BREAST CARE: * Wear a snug supportive bra. * For engorgement discomfort: Bottle Feeding: * May apply ice packs ABDOMINAL INCISION: (if applicable) * Allow incision to air dry * Do NOT use lotions for powders on your incision * When showering, allow soap and water to run over the incision, but do not wash incision * Change your pad frequently throughout the day * No tub baths until seen by your physician - You may shower ACTIVITY: * Rest as much as possible. * Do not exercise or lift anything heavier than your baby (such as laundry or other children.) * Avoid stairs or driving as much as possible. * Do not put anything into the vagina. No douching, tampons, or sexual activity until seen by physician. NOTIFY PHYSICIAN IF YOU HAVE ANY QUESTIONS OR IF ANY OF THE FOLLOWING SYMPTOMS OCCUR: * If your episiotomy or incision becomes red, swollen, or more painful than what you have experienced in the hospital. * If your vaginal bleeding becomes foul smelling. * If your vaginal bleeding becomes more heavy than a period or if your bleeding changes from pink to bright red. However, you may pass an occasional
[2023-08-24] MEDS: DOCUSATE SODIUM 100 MG CAPSULE PO (09:00)
[2023-08-24] MEDS: CHOLECALCIFEROL 1,000 UNITS TABLET 2000 UNITS PO (09:00)
[2023-08-24] MEDS: HYDROcodone/acetaminophen (*CRX) 5-325 MG TABLET 1 TAB PO (09:01)
[2023-08-24] MEDS: MULTIVIT/MIN/PREN/FOL AC/IRON TABLET 1 TAB PO (09:01)
[2023-08-24] MEDS: POLYSACCHARIDE IRON COMPLEX 150 MG CAPSULE PO (09:01)
[2023-08-24] MEDS: IBUPROFEN 600 MG TABLET PO (09:01)
[2023-08-24] MEDS: MEASLES,MUMPS,RUBELLA VACCINE 0.5 ML VIAL SUB-Q (10:03)
[2023-08-25 10:18] VITALS: BP 113/65; PULSE 98; RESP 18; TEMP 37.1; O2SAT 99
== END 2023-08-24 10:38 | disposition home or self-care (01) | DRG 786 ==
LOC: ANHLDR 19:41 → ANHOB2 08-21 21:08
PROVIDERS: Admitting Provider Obstetrics & Gynecology; Visit Provider Obstetrics & Gynecology
PROC: 10D00Z1 Extraction of Products of Conception, Low, Open Approach (ICD-10-PCS; CPT 59514; principal; 2023-08-21 17:30)
DX: O32.4XX0 Maternal care for high head at term, not applicable or unspecified (principal); O41.1230 Chorioamnionitis, third trimester, not applicable or unspecified; O36.63X0 Maternal care for excessive fetal growth, third trimester, not applicable or unspecified; O69.81X0 Labor and delivery complicated by cord around neck, without compression, not applicable or unspecified; Z3A.38 38 weeks gestation of pregnancy; Z37.0 Single live birth
CPT/HCPCS: 36415; 80053; 80170; 82565; 84112; 84550; 85025; 86592; 86703; 86850; 86900; 86901; 88307; 90710; A9270; G0432; J0290; J1200; J1580; J1885; J2175; J2274; J2405; J2590; J2795; J3480; J7120

== ENCOUNTER 2024-11-20 11:54 | Inpatient (IN) | payer BC, SELFPAY ==
[2024-11-20] VITALS (170 sets, daily range): BP systolic 98–155; BP diastolic 47–88; PULSE 83–151; TEMP 36.6–37.9; O2SAT 82–100; BMI 30.4
[2024-11-20 12:51] LABS: Basophils Percent Auto 0.4 % (0.2-1.2); Eosinophils Absolute Auto 0.1 K/mm3 (0-0.3); Eosinophils Percent Auto 0.8 % (0-4.4); Hematocrit 35.1 % (37.0-47.0); Hemoglobin 11.2 g/dL (12.0-15.0); Immature Granulocyte Absolute 0.15 K/mm3 (0.00-0.031); Immature Granulocyte Percent A 1.4 % (0-0.5); Lymphocytes Absolute Auto 1.97 K/mm3 (0.9-3.2); Lymphocytes Percent Auto 17.8 % (18.3-44.2); Mean Corpuscular HGB Conc 31.9 g/dl (32-36); Mean Corpuscular Hemoglobin 27.1 pg (26-34); Mean Platelet Volume 10.4 fl (7.4-10.4); Monocytes Absolute Auto 0.7 K/mm3 (0.1-0.6); Monocytes Percent Auto 6.6 % (2.6-8.5); Neutrophils Absolute Auto 8.1 K/mm3 (1.3-6.7); Platelet Count Result 243 k/mm3 (150-375); Red Blood Count 4.13 M/mm3 (4.2-5.4); Red Cell Distribution Width 15.1 % (11.5-14.5); White Blood Count 11.1 K/mm3 (4.5-10.0)
[2024-11-20] MEDS: LACTATED RINGERS 1,000 ML 125 ML IV CONT (13:00)
[2024-11-20] MEDS: OXYTOCIN 30 UNITS/NS 500 ML 30 UNITS/500 ML BAG IV CONT (13:07)
--- NOTE | 2024-11-20 13:12 | LDADM ---
This patient, Leona Barnett, was admitted to Labor/Delivery/Recovery 102 on 11/20/24 at 11:54. Plans for labor, pain management and were discussed with patient. Patient/family oriented to hospital policies and general routines including ID bracelet, bed and alarms, visiting hours, pain management, procedures, bathroom and other care routines, personal items, smoking policy, room service/diet and guest tray routines, infant security routines, and visiting hours. Patient/Family are encouraged to report perceived risks to care and to ask questions if they do not understand what they are told or what they should do. See OBIX for further documentation.
--- OUTSIDE RECORDS SUMMARY | 2024-11-20 13:54 | XMS_ITS | Continuity of Care Document ---
Author Organization [facility] [place] Address [address] [place] [address] Care Team Providers Care Manager Multicultural Name Role Phone RHONDA JARRETT Primary Care Provider Assessment No assessment recorded. Plan of Treatment Reminders Order Date Submit Date Provider Last Modified By Organization Details Last Modified Time Details Appointments INDUCTION 2024 06:30A M Caro Daily CNM Not available Not available Not available Lab None recorded. Referral None recorded. Procedures None recorded. Surgeries None recorded. Imaging None recorded. Medication Orders None recorded. Patient TargetsNo targets recorded. Patient InstructionsNo instructions recorded. Reason for Referral None Reported. Results Created Date Observation Date Name Description Value Unit Range Abnormal Flag Note LastModifiedBy Organization Detail LastModifiedTime 05/22/20 24 05/22/2024 US, obste tric, nucha l trans lucen cy No observ ation record ed. [facility] [address], [place], [address], 05/22/2024 18:10:31 05/22/20 24 05/22/2024 US, obste tric, follo w-up No observ ation record ed. [address], [place], [address], 05/23/2024 09:11:06 07/11/20 24 07/11/2024 US, obste tric, 2nd or 3rd trime ster No observ ation record ed. [facility] [address], [place], [address], 07/11/2024 18:00:00 07/11/20 24 07/11/2024 US, obste tric, follo w-up No observ ation record ed. [email or web address] [address], [place], [address], 07/12/2024 10:25:27 08/10/19 25 08/10/2024 US, obste tric, follo w-up No observ ation record ed. [facility] [place] [address], [place], [address], 08/10/2024 16:26:37 08/10/19 25 08/10/2024 US, obste tric, follo w-up No observ ation record ed. [email or web address] [address], [place], [address], 08/12/2024 14:18:30 09/19/19 25 09/19/2024 US, obste tric, follo w-up No observ ation record ed. [email or web address] [place] [address], [place], [address], 09/19/2024 18:17:22 09/19/19 25 09/19/2024 US, obste tric, follo w-up No observ ation record ed. BRAYDEN [address], [place], [address], 09/21/2024 11:56:47 10/18/19 25 10/17/2024 US, obste tric, follo w-up No observ ation record ed. [email or web address] [place] [address], [place], [address], 10/17/2024 18:09:12 10/18/19 25 10/17/2024 US, obste tric, follo w-up No observ ation record ed. BRAYDEN [address], [place], [address], 10/23/2024 18:52:28 Result Notes None recorded. Problems Name Problem SNOMED Code Status Onset Date Resolution Date Notes Provider Name and Address Organization Details Recorded Time 63861656 Active 2023 Cheri Rodriguez [facility], [facility] 4 16:43:46 Past history of section 009875345 Active 08/2023, complete and pushing KIM BOUCHER MD [address], [place], [address], [place] [facility] 4 17:30:17 Anemia 286904627 Active slo fe daily Jerilyn Green [facility] 5 11:03:20 Anemia 245691214 Active slo fe daily Jerilyn Green [facility] 5 11:03:20 Problem Notes None recorded. Procedures Surgical History Date Name Laterality Status Provider Name and Address Organization Details Recorded Time 4 Date of Last Pap Smear completed Юлия Carver [facility] 04/18/2024 19:44:46 4 section [facility]/18[facility]24 19:50:39 Imaging Results None recorded. Procedure Notes None recorded. Medical Equipment None Reported. Allergies Allergen ID Allergen Name Allergen Category Reaction Reaction Severity Criticality Documentation Date Start Date Code Code System Note Provider Name and Address Organization Details Recorded Time 32817 shellfish derived food,medi cation Not available Not available Not available 04/18/2024 99977 UNK Юлия Carver [facility] 4 19:44:02 Medications Name Sig Start Date Stop Date Status Note LastModified by Organization Details LastModified Time ondansetron HCl 4 mg tablet Take 2 tablets twice a day by oral route as needed, for nausea and vomiting . 11/09 completed Not Available Not Available Not Available active Not Available Not Avai lable Not Available Vitals None Recorded Social History Question Answer Notes LastModified by Organizat ion Details LastModified Time Tobacco Smoking Status Never Smoker Юлия Carver [facility], [facility] 04/18/2024 19:50:06 What Is Your Level Of Alcohol Consumption? None [email or web address] Information not available 04/18/2024 If You Are , What Was Your Level Of Alcohol Consumption Prior To ? Occasional [email or web address] Information not available 04/18/2024 Are You Blind Or Do You Have Difficulty Seeing? No [email or web address] Information n ot available 04/18/2024 What Is Your Level Of Caffeine Consumption? Occasional [email or web address] Information not available 04/18/2024 In The 14 Days Before Symptom Onset, Have You Had Close Contact With A Laboratory-confirm ed COVID-19 While That Case Was Ill? No [email or web address] Information n ot available 04/18/2024 In The 14 Days Before Symptom Onset, Have You Had Close Contact With A Person Who Is Under Investigation For COVID-19 While That Person Was Ill? No [email or web address] Information not available 04/18/2024 Have You Been To An Area Known To Be High Risk For COVID-19? No [email or web address] Information not available 04/18/2024 Are You Deaf Or Do You Have Serious Difficulty Hearing? No [email or web address] Information not available 04/18/2024 What Type Of Diet Are You Following? REGULAR [email or web address] Information n ot available 04/18/2024 Do You Use Your Seat Belt Or Car Seat Routinely? Yes Information not available 04/18/2024 Do You Have Smoke And Carbon Monoxide Detectors In Your Home? Yes [email or web address] Information not available 04/18/2024 Do You Feel Stressed (tense, Restless, Nervous, Or Anxious, Or Unable To Sleep At Night)? [id number] [email or web address] Information not available 04/18/2024 Do You Use Any Illicit Or Recreational Drugs? No [email or web address] Information not available 04/18/2024 Do You Use Sunscreen Routinely? Yes [email or web address] Information not available 04/18/2024 Has Tobacco Cessation Counseling Been Provided? No Information not available 04/18/2024 Do You Or Have You Ever Used Any Other Forms Of Tobacco Or Nicotine? No [email or web address] Information not available 04/18/2024 Sex: Unknown Functional Status Question Answer Note LastModified by Organizat ion Details LastModified Time Do you have difficulty walking or climbing stairs? No Information not available 04/18/2024 Are you able to walk? YESWOREST [email or web address] Information not available 04/18/2024 Are you able to care for yourself? Yes [email or web address] Information not available 04/18/2024 Do you have difficulty dressing or bathing? No [email or web address] Information not available 04/18/2024 What is your exercise level? Occasional [email or web address] Information not available 04/18/2024 Mental Status None recorded. Family History Relationship Description Onset Age of this Age Resolved Age Notes LastModified by Organization Details LastModified Time Father Asthma [email or web address] Not available 04/18/2024 19:49:42 Medical History Condition Response Allergies (Food, seasonal, environmental ) Y Other N Drug/Latex Allergies/Reactions N Breast Cancer N Blood Transfusion N Lung Disease N Dermatologic Disorders N Defects or Inherited Disease N Breast Problem N Gestational Diabetes N Hematologic disorders N Anesthesia Complications N History of STI N Deep Vein Thrombosis N Polycystic ovary syndrome N Anxiety Disorder Y Autoimmune disease N Arthritis N Polyps N Infertility N History of abnormal pap N Acid Reflux (GERD) N Cancer N Varicosities N Stroke N Neurologic/Epilepsy N Endometriosis N High Cholesterol N Headaches N Fibromyalgia N Kidney Disease N Heart Problems Y Thyroid Problems N Kidney or Bladder Problems N GI Problems N Eating Disorder N Anemia N Art (IVF or FET) N Psychiatric Illness N Ovarian Cancer N Diabetes N Pulmonary (TB, Asthma) N Hepatitis/Liver Disease N No Past Medical History N Eczema N Urinary Tract Infection N Abuse/Domestic Violence N Asthma Y Trauma/Violence N Depression/ depression N Heart Disease N Pre-Eclampsia N Hypertension N Osteoporosis N Thrombophilias N Gynecological History Statement/Question Response Abnormal Pap N Date of Last Colonoscopy Date of Last Mammogram Date of LMP 02/17/2024 STIs/STDs N Date of DEXA bone scan Date of Last Pap Smear 10/13/2023 Current Control Method LMP Approximate Obstetrics History GPAL:G 2 P 1 0 0 1 Type Value Full Term 1 Living 1 Total 2 Past Encounters Encounter ID Performer Location Encounter Start Date Encounter Closed Date Diagnosis/Indication Diagnosis SNOMED-CT Code Diagnosis ICD10 Code Diagnosis Note [id number] Caro Daily [facility] [address],[place] [address] 10/24/2024 17:23:31 10/25/2024 00:06:56 Gestation period, 35 weeks 36412093 Z3A.35 screening 2437 13190 Z36.85 [id number] Caro Daily [facility] [address],[place] [address] 10/31/2024 09:51:53 10/31/2024 10:46:59 Gestation period, 36 weeks 90013655 Z3A.36 [id number] Caro Daily [facility] [address],[place] [address] 11/09/2024 15:14:58 11/09/2024 16:19:48 Gestation period, 38 weeks 25876389 Z3A.38 [id number] Joanthan Croft MD [place] [address],[place] [address] 11/15/2024 11:50:13 11/15/2024 13:36:17 [id number] Caro Daily [place] [address] [address] 11/20/2024 09:24:32 11/20/2024 09:56:36 Health Concerns Section Related Observation LastModified by Organization Detai ls LastModified Time None Recorded Concern Status LastModified by Organization Details LastModified Time None Recorded Payers Encounter Date Sequence Insurance Name Policy Number Policy Yuan Covered Member ID Yuan Member ID Guarantor Name 11/20/2024 1 [place] [id number] Leona Barnett [id number] Leona Barnett OBGyn Episode Ob Episode Information Episode Created Date Number of Fetuses Patient Bloodtype Patient rh Status Prepregnancy Weight lbs Domestic Partner Domestic Partner Phone Father Name Health Safety Manager Status 05/22/20 24 1 O Positive OPEN Fetus Data First Name Last Name Admitted to NICU Weight (g) Sex Living Outcome Pediatric Complications Fetus ID Race Codes Race Delivery Type [id number] Problems Problem Notes Problem Name Start Date End Date Resolution Snomed Code Not e Past history of section [id number] 08/2023, complete and pushing Anemia 493006412 slo fe mg ly Tal Calculation Initial Tal Date Initial Exam Date Initial Exam Provider Initial Ultrasound Date Last Menstrual Period Date Ultra Sound Weeks Gestation 11/23/2024 05/22/2024 04/18/2024 02/17/2024 8 Eighteen To Twenty Week Tal Update Ultra Sound Date Fundal Height At Umbil Quickening Date Ultra Sound Latest Weeks Gestation Final Tal Confirmed By Final Tal Confirmed Date Final Tal Date Ultra Sound Latest Days Gestation 0 [email or web address] 05/22/2024 11/24/19 25 0 Pre-martha Flowsheet Flowsheet Date 05/22/2024 Frank Score Blood Edema Fundus Height Fundus Units Glucose Ketones Leukocytes Nitrite Labor Signs Protein Cervic Dilation Cervic Effacement Cervic Station Type Weight in lbs Pre/Post Dialysis Refused BP Diastolic BP Location Tested BP Systolic BP Type Fetus Heart Rate Present Fetus Movement Comments Flowsheet Date 05/22/2024 Frank Score Blood Edema Fundus Height Fundus Units Glucose Ketones Leukocytes Nitrite Labor Signs Protein Cervic Dilation Cervic Effacement Cervic Station neg none none neg Type Weight in lbs Pre/Post Dialysis Refused Weight 137.645522711911 BP Diastolic BP Location Tested BP Systolic BP Type 65 L arm 104 sitting Fetus Heart Rate Present Fetus Movement Comments Patient presents to [facility] care. Doing well, acid reflux improving. NT/NB wnl, LR female NIPT. Other OB labs wnl. Hx of complete and pushing c section in 08/2023 with G1 , 8lb . Unsure of delivery method for this . R/b of RCS vs TOLAC discussed with patient. Otherwise, no PMH/PSH. RTC 4 weeks. Flowsheet Date 06/15/2024 Frank Score Blood Edema Fundus Height Fundus Units Glucose Ketones Leukocytes Nitrite Labor Signs Protein Cervic Dilation Cervic Effacement Cervic Station none Type Weight in lbs Pre/Post Dialysis Refused 141.557182864842 BP Diastolic BP Location Tested BP Systolic BP Type 75 114 Fetus Heart Rate Present A 156 Fetus Movement A No Comments +FM doing well, education an d precautions f/u with anatomy in 3 weeks Flowsheet Date 07/11/2024 Frank Score Blood Edema Fundus Height Fundus Units Glucose Ketones Leukocytes Nitrite Labor Signs Protein Cervic Dilation Cervic Effacement Cervic Station Type Weight in lbs Pre/Post Dialysis Refused BP Diastolic BP Location Tested BP Systolic BP Type Fetus Heart Rate Present Fetus Movement Comments Flowsheet Date 07/11/2024 Frank Score Blood Edema Fundus Height Fundus Units Glucose Ketones Leukocytes Nitrite Labor Signs Protein Cervic Dilation Cervic Effacement Cervic Station Type Weight in lbs Pre/Post Dialysis Refused 147.434417945874 BP Diastolic BP Location Tested BP Systolic BP Type 71 109 Fetus Heart Rate Present Fetus Movement A Yes Comments doing well incomplete anatom y precautions and education ok to continue running f/u 4 weeks with us Flowsheet Date 08/10/2024 Frank Score Blood Edema Fundus Height Fundus Units Glucose Ketones Leukocytes Nitrite Labor Signs Protein Cervic Dilation Cervic Effacement Cervic Station Type Weight in lbs Pre/Post Dialysis Refused BP Diastolic BP Location Tested BP Systolic BP Type Fetus Heart Rate Present Fetus Movement Comments Flowsheet Date 08/10/2024 Frank Score Blood Edema Fundus Height Fundus Units Glucose Ketones Leukocytes Nitrite Labor Signs Protein Cervic Dilation Cervic Effacement Cervic Station Type Weight in lbs Pre/Post Dialysis Refused 151.053791361656 BP Diastolic BP Location Tested BP Systolic BP Type 71 103 Fetus Heart Rate Present Fetus Movement A Yes Comments anatomy complete, headache,n ot sharp, annoying tylenol didnt help too much tried caffeine, will check labs and try excedrin tension, precautions and education Flowsheet Date 09/07/2024 Frank Score Blood Edema Fundus Height Fundus Units Glucose Ketones Leukocytes Nitrite Labor Signs Protein Cervic Dilation Cervic Effacement Cervic Station neg none 32 cm Type Weight in lbs Pre/Post Dialysis Refused 155.89208732292 BP Diastolic BP Location Tested BP Systolic BP Type 65 108 Fetus Heart Rate Present A 133 Present Fetus Movement A Yes Comments Patient states that having s ome BH contractions. reviewed education and precautions rx for rsv and tdap given, gct today f/u 2 weeks Flowsheet Date 09/19/2024 Frank Score Blood Edema Fundus Height Fundus Units Glucose Ketones Leukocytes Nitrite Labor Signs Protein Cervic Dilation Cervic Effacement Cervic Station Type Weight in lbs Pre/Post Dialysis Refused BP Diastolic BP Location Tested BP Systolic BP Type Fetus Heart Rate Present Fetus Movement Comments Flowsheet Date 09/19/2024 Frank Score Blood Edema Fundus Height Fundus Units Glucose Ketones Leukocytes Nitrite Labor Signs Protein Cervic Dilation Cervic Effacement Cervic Station neg none Type Weight in lbs Pre/Post Dialysis Refused 160.298767690973 BP Diastolic BP Location Tested BP Systolic BP Type 72 112 Fetus Heart Rate Present Fetus Movement A Yes Comments Flowsheet Date 10/03/2024 Frank Score Blood Edema Fundus Height Fundus Units Glucose Ketones Leukocytes Nitrite Labor Signs Protein Cervic Dilation Cervic Effacement Cervic Station neg none 33 cm Type Weight in lbs Pre/Post Dialysis Refused Weight 164.446774318617 BP Diastolic BP Location Tested BP Systolic BP Type 74 117 Fetus Heart Rate Present A 145 Fetus Movement A Yes Comments +FM, will get tdap, call for preadmission, LGA has us next visit Flowsheet Date 10/17/2024 Frank Score Blood Edema Fundus Height Fundus Units Glucose Ketones Leukocytes Nitrite Labor Signs Protein Cervic Dilation Cervic Effacement Cervic Station Type Weight in lbs Pre/Post Dialysis Refused BP Diastolic BP Location Tested BP Systolic BP Type Fetus Heart Rate Present Fetus Movement Comments Flowsheet Date 10/17/2024 Frank Score Blood Edema Fundus Height Fundus Units Glucose Ketones Leukocytes Nitrite Labor Signs Protein Cervic Dilation Cervic Effacement Cervic Station neg none Type Weight in lbs Pre/Post Dialysis Refused 166.294252857717 BP Diastolic BP Location Tested BP Systolic BP Type 79 127 Fetus Heart Rate Present Fetus Movement A Yes Comments Patient is having some BH co ntractions. Flowsheet Date 10/24/2024 Frank Score Blood Edema Fundus Height Fundus Units Glucose Ketones Leukocytes Nitrite Labor Signs Protein Cervic Dilation Cervic Effacement Cervic Station neg none Type Weight in lbs Pre/Post Dialysis Refused 166.788537131954 BP Diastolic BP Location Tested BP Systolic BP Type 75 118 Fetus Heart Rate Present Fetus Movement A Yes Comments Patient states that is havin g some BH contractions. unsure about vaginal / rpt csec, +FM, gbs collected,precautions and education Flowsheet Date 10/31/2024 Frank Score Blood Edema Fundus Height Fundus Units Glucose Ketones Leukocytes Nitrite Labor Signs Protein Cervic Dilation Cervic Effacement Cervic Station neg none 36 cm Type Weight in lbs Pre/Post Dialysis Refused Weight 168.305686174497 BP Diastolic BP Location Tested BP Systolic BP Type 78 137 Fetus Heart Rate Present A 148 Present Fetus Movement A Yes Comments Patient is having some BH co ntraction. Precautions and education +FM, wants IOL around 39 weeks will schedule, f/u one week Flowsheet Date 11/09/2024 Frank Score Blood Edema Fundus Height Fundus Units Glucose Ketones Leukocytes Nitrite Labor Signs Protein Cervic Dilation Cervic Effacement Cervic Station neg none Type Weight in lbs Pre/Post Dialysis Refused 171.564884748059 BP Diastolic BP Location Tested BP Systolic BP Type 77 126 Fetus Heart Rate Present Fetus Movement A Yes Comments Patient states that is havin g some BH contractions. cervix 0.5 cm +FM precautions and education f/u one week Flowsheet Date 11/15/2024 Frank Score Blood Edema Fundus Height Fundus Units Glucose Ketones Leukocytes Nitrite Labor Signs Protein Cervic Dilation Cervic Effacement Cervic Station 40% Type Weight in lbs Pre/Post Dialysis Refused Weight 172.580463426069 BP Diastolic BP Location Tested BP Systolic BP Type 86 L arm 126 sitting Fetus Heart Rate Present A 142 Present Fetus Movement A Yes Comments no complaints, no problems, routine care, no contractions, no vaginal bleeding, no loss of fluid, no cramping Flowsheet Date 11/20/2024 Frank Score Blood Edema Fundus Height Fundus Units Glucose Ketones Leukocytes Nitrite Labor Signs Protein Cervic Dilation Cervic Effacement Cervic Station Type Weight in lbs Pre/Post Dialysis Refused BP Diastolic BP Location Tested BP Systolic BP Type Fetus Heart Rate Present Fetus Movement Comments Menstrual History Last Menstrual Date Menses Monthly On Bcp Conception Prior Menses Frequency Hcg Plus Date Menarche Onset Age 0702/17/2024 Delivery Information Delivery Date Delivery Type Labor Anesthesia Weeks Gestation Incision Type Labor Labor Length Hrs Delivered By Post Complications Tubal Sterilization Discharge Date Comments Discharge Information Feeding Method Contraceptive Method Maternal HG B and HCT Levels
--- OUTSIDE RECORDS SUMMARY | 2024-11-20 13:55 | XMS_ITS | Encounter Summary ---
Author Organization [facility] Address [address] [place] [address] Care Team Providers Care Web Mobile Designer Name Role Phone Unavailable Primary Care Provider Unavailabl e Reason for Visit * Reason Onset Date Comments Needs Appointment 04/29/2023 CALLED THREE T IMES TO SCHEDULE-ORDER RETURNED TO PROVIDER Encounter Details Date Type Department Care Team (Late st Contact Info) Description 04/29/2023 Telephone [facility] Maternal and Ground Floor S [facility] [address] [place] [address] Dc Mcginnis MD [address] [facility] [address] [place] [address] Needs Appointment (CALLED THREE TIMES TO SCHEDULE-ORDER RETURNED TO PROVIDER) Social History Tobacco Use Types Packs/Day Years Used Date Smoking Tobacco: Never Assessed Comments Unknown Sex and Gender Information Value Date Recorded Sex Assigned at Not on file Legal Sex Female 7:58 AM CDT Gender Identity Not on file Sexual Orientation Not on file documented as of this encounter Progress Notes * Nataly Blackwood - 04/29/2023 8:38 AM CDT Leoan Barnett has been called three times to schedule US OB 14+ WKS SINGLE GEST at [facility]. She did not answer the telephone or return our call. The order has been returned to the OB provider to review. The patient's physician was notified to review the order via inbox message documented in this encounter Plan of Treatment Not on file documented as of this encounter Visit Diagnoses Not on filedocumented in this encounter
--- OUTSIDE RECORDS SUMMARY | 2024-11-20 13:55 | XMS_ITS | Data Portability ---
Author Organization [facility] Address [address] [place] [address] Care Team Providers Care Inpatient Care Manager Rn Name Role Phone RHONDA JARRETT Primary Care Provider Assessment Encounter Date Assessment Date Assessment LastModified by Organization Details LastModified Time 10/24/2024 10/24/2024 Patient is ___weeks . Discussed plan. [email or web address] Not available 10/24/2024 17:42:23 10/31/2024 10/31/2024 Patient is __36_weeks . Discussed plan. Not available 10/31/2024 10:34:37 11/09/2024 11/09/2024 Patient is _38__weeks . Discussed plan. [email or web address] Not available 11/09/2024 16:13:56 11/15/2024 11/15/2024 Patient is ___weeks . Discussed plan. [email or web address] Not available 11/15/2024 13:01:17 Plan of Treatment Reminders Order Date Submit Date Provider Last Modified By Organization Details Last Modified Time Details Appointments INDUCTION 2024 06:30A M Caro Daily CNM Not available Not available Not available Lab streptoco ccus group B, culture, unspecifi ed specimen 2024 025 [facility] (Lab), [address], [place], [address], 10/27/2024 16:07:13 Referral None recorded. Procedures None recorded. Surgeries None recorded. Imaging None recorded. Medication Orders None recorded. Patient TargetsNo targets recorded. Patient InstructionsNo instructions recorded. Reason for Referral None Reported. Results Created Date Observation Date Name Description Value Unit Range Abnormal Flag Note LastModifiedBy Organization Detail LastModifiedTime 10/25/1910/24/2024 CULTU RE: GROUP B STREP SCREE N, REFLE X SUSCE PTIBI LITY result report SEE RESULT S BELOW Test: Cultu re: Group B Strep , Refle x Susce ptibi lity ([facility]/ [facility] ) Speci men Sourc e: Vagin a/Rec gearld Speci men Type: Vagin al/Re ctal Speci men Date: 2024 1657 Resul t Date: 2024 1504 Resul t Statu s: Final resul t Abnor mal: No Resul ting Lab: [facility] [address] [facility] [facility] [address] Tel: CULTU RE ----- ----- ----- --- No Group B strep isola jose at 2 days (carlos ctive broth enhan cemen t) Not Available [facility] (Lab) [address], [place], [address], 10/27/2024 16:07:13 10/18/19 25 10/17/2024 US, obste tric, follo w-up No observ ation record ed. [email or web address] [facility] [address], [place], [address], 10/17/2024 18:09:12 10/18/19 25 10/17/2024 US, obste tric, follo w-up No observ ation record ed. BRAYDEN Vega [address], [facility] [place], [address], 10/23/2024 18:52:28 Result Notes None recorded. Problems Name Problem SNOMED Code Status Onset Date Resolution Date Notes Provider Name and Address Organization Details Recorded Time 58229818 Active 2023 Cheri luo, [place] - [facility] 16:43:46 Past history of section 643337282 Active 08/2023, complete and pushing KIM BOUCHER MD [address], [place], [address], [facility] 4 17:30:17 Anemia 051765502 Active slo fe daily Jerilyn Green null, [facility] 5 11:03:20 Anemia 972215301 Active slo fe daily Jerilyn Green [facility], [facility] 5 11:03:20 Problem Notes None recorded. Procedures Surgical History Date Name Laterality Status Provider Name and Address Organization Details Recorded Time 4 Date of Last Pap Smear completed Юлия Carver [facility] 04/18/2024 19:44:46 4 section completed Юлия Carver [facility] 04/18/2024 19:50:39 Imaging Results Imaging Date Name Status LastModified by Organiz ation Details LastModified Time 10/17/2024 US, obstetric, follow-up completed [email or web address] [facility] [address], [place], [address], 10/17/2024 18:09:12 10/17/2024 US, obstetric, follow-up completed BRAYDEN Silvia [address], [place], [address], 10/23/2024 18:52:28 Procedure Notes None recorded. Medical Equipment None Reported. Allergies Allergen ID Allergen Name Allergen Category Reaction Reaction Severity Criticality Documentation Date Start Date Code Code System Note Provider Name and Address Organization Details Recorded Time 33073 shellfish derived food,medi cation Not available Not available Not available 04/18/2024 59340 UNK Юлия Carver [facility], [facility] 4 19:44:02 Medications Name Sig Start Date Stop Date Status Note LastModified by Organization Details LastModified Time ondansetron HCl 4 mg tablet Take 2 tablets twice a day by oral route as needed, for nausea and vomiting . 11/09 completed Not Available Not Available Not Available active Not Available Not Avai lable Not Available Vitals Date Recorded Body weight Body mass index (BMI) Body height Systolic blood pressure Diastolic blood pressure Provider Name and Address Organization Details Last Updated DateTime 10/24/2024 08366.33 342 g 29.4 kg/m2 160.02 cm 118 mm[Hg] 75 mm[Hg] Юлия Carver [facility] 17:42:54 Date Recorded Body height Body mass index (BMI) Body weight Systolic blood pressure Diastolic blood pressure Provider Name and Address Organization Details Last Updated DateTime 10/31/2024 160.02 cm 29.8 kg/m2 05041.52 g 137 mm[Hg] 78 mm[Hg] Юлия Carver [facility] 10:31:32 Date Recorded Body weight Body mass index (BMI) Body height Systolic blood pressure Diastolic blood pressure Provider Name and Address Organization Details Last Updated DateTime 11/09/2024 48718.29 527 g 30.3 kg/m2 160.02 cm 126 mm[Hg] 77 mm[Hg] Юлия Carver [facility] 5 15:44:50 Date Recorded Body weight Body mass index (BMI) Body height Systolic blood pressure Diastolic blood pressure Provider Name and Address Organization Details Last Updated DateTime 11/15/2024 05513.89 g 30.5 kg/m2 160.02 cm 126 mm[Hg] 86 mm[Hg] Anne Bundy [facility] 13:04:14 Social History Question Answer Notes LastModified by Organizat ion Details LastModified Time Tobacco Smoking Status Never Smoker Юлия Carver [facility] 04/18/2024 19:50:06 What Is Your Level Of Alcohol Consumption? None [email or web address] Information not available 04/18/2024 If You Are , What Was Your Level Of Alcohol Consumption Prior To ? Occasional [email or web address] Information not available 04/18/2024 Are You Blind Or Do You Have Difficulty Seeing? No [email or web address] Information n ot available 04/18/2024 What Is Your Level Of Caffeine Consumption? Occasional [email or web address] Information not available 04/18/2024 In The 14 Days Before Symptom Onset, Have You Had Close Contact With A Laboratory-confirm ed COVID-19 While That Case Was Ill? No [email or web address] Information n ot available 04/18/2024 In The 14 Days Before Symptom Onset, Have You Had Close Contact With A Person Who Is Under Investigation For COVID-19 While That Person Was Ill? No [email or web address] Information not available 04/18/2024 Have You Been To An Area Known To Be High Risk For COVID-19? No [email or web address] Information not available 04/18/2024 Are You Deaf Or Do You Have Serious Difficulty Hearing? No Information not available 04/18/2024 What Type Of Diet Are You Following? REGULAR [email or web address] Information n ot available 04/18/2024 Do You Use Your Seat Belt Or Car Seat Routinely? Yes [email or web address] Information not available 04/18/2024 Do You Have Smoke And Carbon Monoxide Detectors In Your Home? Yes [email or web address] Information not available 04/18/2024 Do You Feel Stressed (tense, Restless, Nervous, Or Anxious, Or Unable To Sleep At Night)? [id number] [email or web address] Information not available 04/18/2024 Do You Use Any Illicit Or Recreational Drugs? No [email or web address] Information not available 04/18/2024 Do You Use Sunscreen Routinely? Yes [email or web address] Information not available 04/18/2024 Has Tobacco Cessation Counseling Been Provided? No [email or web address] Information not available 04/18/2024 Do You Or Have You Ever Used Any Other Forms Of Tobacco Or Nicotine? No [email or web address] Information not available 04/18/2024 Sex: Unknown Functional Status Question Answer Note LastModified by Organizat ion Details LastModified Time Do you have difficulty walking or climbing stairs? No [email or web address] Information not available 04/18/2024 Are you able to walk? YESWOREST [email or web address] Information not available 04/18/2024 Are you able to care for yourself? Yes [email or web address] Information not available 04/18/2024 Do you have difficulty dressing or bathing? No [email or web address] Information not available 04/18/2024 What is your exercise level? Occasional [email or web address] Information not available 04/18/2024 Mental Status None recorded. Family History Relationship Description Onset Age of this Age Resolved Age Notes LastModified by Organization Details LastModified Time Father Asthma [email or web address] Not available 04/18/2024 19:49:42 Medical History Condition Response Allergies (Food, seasonal, environmental ) Y Other N Breast Cancer N Drug/Latex Allergies/Reactions N Blood Transfusion N Dermatologic Disorders N Lung Disease N Defects or Inherited Disease N Breast Problem N Gestational Diabetes N Hematologic disorders N Anesthesia Complications N History of STI N Deep Vein Thrombosis N Polycystic ovary syndrome N Anxiety Disorder Y Autoimmune disease N Arthritis N Infertility N Polyps N Acid Reflux (GERD) N History of abnormal pap N Cancer N Stroke N Varicosities N Neurologic/Epilepsy N Endometriosis N High Cholesterol N Headaches N Fibromyalgia N Kidney Disease N Heart Problems Y Kidney or Bladder Problems N Thyroid Problems N GI Problems N Eating Disorder [...] SNOMED-CT Code Diagnosis ICD10 Code Diagnosis Note [id number] Delaney Banks [facility] [address] [address] 04/18/2024 17:18:08 04/19/2024 10:17:28 [id number] Caro Daily CNM [facility] [address] [address] 04/18/2024 17:21:43 04/19/2024 10:18:02 Amenorrhea 65756056 N91.2 reviewed office precaution splan nipt and labs at 10 weeks12 week new ob and first lookdiscus sed rpt c/s, but will continue to assess, short interval pregnancyc ontinue pnvpap up to date Past pregn dariel history of section 759840205 Z98.890 [id number] [facility] [address],[place] [address] 05/22/2024 16:13:13 05/22/2024 16:45:52 screening 327717017 Z36.82 Z3A.13 [id number] KIM BOUCHER MD [facility] [address],[place] [address] 05/22/2024 16:14:06 05/22/2024 17:38:37 Routine care 012673995 Z34.01 Past pregn dariel history of section 489725043 Z98.890 [id number] Caro Daily CNM [facility] [address],[place] [address] 06/15/2024 15:51:17 06/15/2024 16:35:21 Gestation period, 17 weeks 19487242 Z3A.17 [id number] [facility] [address],[place] [address] 07/11/2024 16:20:32 07/11/2024 17:31:10 screening for malformation 139642304 Z36.3 [id number] [facility] [address] [address] 07/11/2024 16:22:28 07/11/2024 18:02:07 Gestation period, 20 weeks 47856156 Z3A.20 [id number] [facility] [address],[place] [address] 08/10/2024 09:40:26 08/10/2024 11:59:50 Gestation period, 25 weeks 04806196 Z3A.25 [id number] Caro Daily CNM [facility] [address],[place] [address] 08/10/2024 09:41:06 08/10/2024 11:03:22 Gestation period, 25 weeks 55830194 Z3A.25 - induced hypertension 20728622 O13.9 rule out [id number] [facility] [address] [address] 09/07/2024 09:13:59 09/07/2024 09:58:56 Gestation period, 29 weeks 74381002 Z3A.29 [id number] [facility] [address],[place] [address] 09/19/2024 17:19:24 09/19/2024 17:59:29 Uterine size for dates discrepancy 461955107 O26.843 Z3A.30 [id number] [facility] [address] [address] 09/19/2024 17:20:25 09/20/2024 05:33:34 Gestation period, 30 weeks 53136058 Z3A.30 [id number] [facility] [address],[place] [address] 10/03/2024 17:15:47 10/03/2024 17:36:43 Gestation period, 32 weeks 7091849 Z3A.32 [id number] [facility] [address],[place] [address] 10/17/2024 16:59:06 10/17/2024 17:47:39 Uterine size for dates discrepancy 607483809 O26.843 Z3A.34 [id number] [facility] [address] [address] 10/17/2024 17:02:34 10/17/2024 18:11:51 Gestation period, 34 weeks 90784535 Z3A.34 [id number] [facility] [address],[place] [address] 10/24/2024 17:23:31 10/25/2024 00:06:56 Gestation period, 35 weeks 93985131 Z3A.35 screening 2437 52647 Z36.85 [id number] Caro Daily [facility] [address],[place] [address] 10/31/2024 09:51:53 10/31/2024 10:46:59 Gestation period, 36 weeks 68732443 Z3A.36 [id number] Caro Daily [facility] [address],[place] [address] 11/09/2024 15:14:58 11/09/2024 16:19:48 Gestation period, 38 weeks 41507196 Z3A.38 [id number] Jonathan Croft MD [facility] [address],[place] [address] 11/15/2024 11:50:13 11/15/2024 13:36:17 [id number] Caro Daily [facility] [address],[place] [address] 11/20/2024 09:24:32 11/20/2024 09:56:36 Health Concerns Section Related Observation LastModified by Organization Detai ls LastModified Time None Recorded Concern Status LastModified by Organization Details LastModified Time None Recorded Advance Directives Directive None Recorded Payers Encounter Date Sequence Insurance Name Policy Number Policy Yuan Covered Member ID Yuan Member ID Guarantor Name 10/24/2024 1 [place] [id number] Leona Barnett [id number] Leona Barnett 10/31/2024 1 [place] [id number] Leona Barnett [id number] Leona Barnett 11/09/2024 1 [place] [id number] Leona Barnett [id number] Leona Barnett 11/15/2024 1 [place] [id number] Leona Barnett [id number] Leona Barnett 11/20/2024 1 [place] [id number] Leona Barnett [id number] Leona Barnett OBGyn Episode Ob Episode Information Episode Created Date Number of Fetuses Patient Bloodtype Patient rh Status Prepregnancy Weight lbs Domestic Partner Domestic Partner Phone Father Name [employer] Status 05/22/20 24 1 O Positive OPEN Fetus Data First Name Last Name Admitted to NICU Weight (g) Sex Living Outcome Pediatric Complications Fetus ID Race Codes Race Delivery Type [id number] Problems Problem Notes Problem Name Start Date End Date Resolution Snomed Code Not e Past history of section 391771686 08/2023, complete and pushing Anemia 391187484 slo fe mg ly Tal Calculation Initial [...] Date Ultra Sound Latest Days Gestation 0 [email or web address] 05/22/2024 11/24/19 25 0 Pre- Flowsheet Flowsheet Date 05/22/2024 Frank Score Blood [...] Weight in lbs Pre/Post Dialysis Refused Weight 137.832582914664 BP Diastolic BP Location Tested BP Systolic BP Type 65 L arm 104 sitting Fetus Heart Rate Present Fetus Movement Comments Patient presents to [facility] care. Doing well, acid reflux improving. NT/NB wnl, LR female NIPT. Other OB labs wnl. Hx of complete and pushing c section in 08/2023 with G1 , 8lb infant. Unsure of delivery method for this . R/b of RCS vs TOLAC discussed with patient. Otherwise, no PMH/PSH. RTC 4 weeks. Flowsheet Date 06/15/2024 Frank Score Blood Edema Fundus Height Fundus Units Glucose Ketones Leukocytes Nitrite Labor Signs Protein Cervic Dilation Cervic Effacement Cervic Station none Type Weight in lbs Pre/Post Dialysis Refused 141.831573549229 BP Diastolic BP Location Tested BP Systolic [...] Type Weight in lbs Pre/Post Dialysis Refused 147.280543036521 BP Diastolic BP Location Tested BP Systolic [...] Type Weight in lbs Pre/Post Dialysis Refused 151.153393353991 BP Diastolic BP Location Tested BP Systolic [...] Type Weight in lbs Pre/Post Dialysis Refused 155.50013593933 BP Diastolic BP Location Tested BP Systolic [...] Type Weight in lbs Pre/Post Dialysis Refused 160.515484306577 BP Diastolic BP Location Tested BP Systolic BP Type 72 112 Fetus Heart Rate Present Fetus Movement A Yes Comments Flowsheet Date 10/03/2024 Frank Score Blood Edema Fundus Height Fundus Units Glucose Ketones Leukocytes Nitrite Labor Signs Protein Cervic Dilation Cervic Effacement Cervic Station neg none 33 cm Type Weight in lbs Pre/Post Dialysis Refused Weight 164.031557650696 BP Diastolic BP Location Tested BP Systolic [...] Type Weight in lbs Pre/Post Dialysis Refused 166.982753664826 BP Diastolic BP Location Tested BP Systolic BP Type 79 127 Fetus Heart Rate Present Fetus Movement A Yes Comments Patient is having some BH co ntractions. Flowsheet Date 10/24/2024 Frank Score Blood Edema Fundus Height Fundus Units Glucose Ketones Leukocytes Nitrite Labor Signs Protein Cervic Dilation Cervic Effacement Cervic Station neg none Type Weight in lbs Pre/Post Dialysis Refused 166.098388117831 BP Diastolic BP Location Tested BP Systolic [...] Weight in lbs Pre/Post Dialysis Refused Weight 168.469044087346 BP Diastolic BP Location Tested BP Systolic [...] Type Weight in lbs Pre/Post Dialysis Refused 171.885531385344 BP Diastolic BP Location Tested BP Systolic [...] Weight in lbs Pre/Post Dialysis Refused Weight 172.646012382601 BP Diastolic BP Location Tested BP Systolic [...] Method Maternal HG B and HCT Levels Ob Episode Information Episode Created Date Number of Fetuses Patient Bloodtype Patient rh Status Prepregnancy Weight lbs Domestic Partner Domestic Partner Phone Father Name [employer] Status 04/18/20 24 1 CLOSED Fetus Data First Name Last Name Admitted to NICU Weight (g) Sex Living Outcome Pediatric Complications Fetus ID Race Codes Race Delivery Type 3628.73 6 F Full Term [id number] Primary Tal Calculation Initial Tal Date Initial Exam Date Initial Exam Provider Initial Ultrasound Date Last Menstrual Period Date Ultra Sound Weeks Gestation 0 Eighteen To Twenty Week Tal Update Ultra Sound Date Fundal Height At Umbil Quickening Date Ultra Sound Latest Weeks Gestation Final Tal Confirmed By Final Tal Confirmed Date Final Tal Date Ultra Sound Latest Days Gestation 0 0 Menstrual History Last Menstrual Date Menses Monthly On Bcp Conception Prior Menses Frequency Hcg Plus Date Menarche Onset Age Delivery Information Delivery Date Delivery Type Labor Anesthesia Weeks Gestation Incision Type Labor Labor Length Hrs Delivered By Post Complications Tubal Sterilization Discharge Date Comments 4 38.4 high heart rate with stress, pushed 5 hours with little to no progress, bebay head rubbing on pelvis. Discharge Information Feeding Method Contraceptive Method Maternal HG B and HCT Levels
--- OUTSIDE RECORDS SUMMARY | 2024-11-20 13:55 | XMS_ITS | Clinical Summary ---
Author Organization [facility] Address [address] [place] [address] Care Team Providers Care Customs Compliance Specialist Name Role Phone Unavailable Primary Care Provider Unavailabl e Source Comments [facility],non-owned Affiliates and Associated Physician Practices is amultiple site organization consisting of ambulatory clinics and hospital sitesin [place], [place], [place] and [place]. This disclosure is being madepursuant to the Care Everywhere program and may not contain all information available regarding this patient. Last updated 18.[facility] Health Allergies No known active allergies Social History Tobacco Use Types Packs/Day Years Used Date Smoking Tobacco: Never Assessed Tobacco Cessation:Counseling Given: Not Answered Comments No Sex and Gender Information Value Date Recorded Sex Assigned at Not on file Legal Sex Female 9:13 AM CDT Gender Identity Not on file Sexual Orientation Not on file Plan of Treatment Health Maintenance Due Date Last Done Comments PAP SMEAR 1999 HIV SCREENING 2014 HPV VACCINE (1 - 3-dose series) 2014 CHLAMYDIA/GONORRHEA SCREENING 2015 HEPATITIS C SCREENING 02/01/2017 DTAP/TDAP/TD VACCINES (1 - Tdap) 2018 HEPATITIS B VACCINE (1 of 3 - 19+ 3-dose series) 2018 COVID-19 VACCINE (1 - 2023-2 5 season) 2024 DEPRESSION SCREENING 08/01/2024 INFLUENZA VACCINE (Season Ended) 2025 ZOSTER VACCINE (1 of 2) 2049 HIB VACCINE Aged Out No longer eligi ble based on patient's age to complete this topic MENINGOCOCCAL (Group B) VACC INE SHARED DECISION-MAKING Aged Out No longer eligibl e based on patient's age to complete this topic MENINGOCOCCAL GROUPS A/C/Y/W VACCINE Aged Out No longer eligible b ased on patient's age to complete this topic PNEUMOCOCCAL VACCINE Aged Out No long er eligible based on patient's age to complete this topic Insurance ANTHEM
--- OUTSIDE RECORDS SUMMARY | 2024-11-20 13:55 | XMS_ITS | Clinical Summary ---
Author Organization [facility] Address [address] [place] [phone] Phone Care Team Providers Care Professional Sports Scout Name Role Phone Unavailable Primary Care Provider Unavailabl e Social History Tobacco Use Types Packs/Day Years Used Date Smoking Tobacco: Never Assessed Comments Unknown Sex and Gender Information Value Date Recorded Sex Assigned at Not on file Legal Sex Female 7:58 AM CDT Gender Identity Not on file Sexual Orientation Not on file Plan of Treatment Health Maintenance Due Date Last Done Comments HPV VACCINES (1 - 3-dose series) 2014 DTAP/TDAP/TD VACCINES (1 - Tdap) 2018 HEPATITIS B VACCINES (1 of 3 - 19+ 3-dose series) 2018 CERVICAL CANCER SCREENING 02/07/2020 HPV/Cotest (21-29) 02/07/2020 PAP SMEAR 02/07/2020 INFLUENZA VACCINE (#1) 2024 PNEUMOCOCCAL VACCINE 0-49 YEARS Aged Out No longer eligible based on patient's age to complete this topic
--- OUTSIDE RECORDS SUMMARY | 2024-11-20 13:55 | XMS_ITS | Data Portability ---
Author Organization [facility] [employer] [facility], Telehealth (patients home) Address [address] [place] [address] Assessment Encounter Date Assessment Date Assessment LastModified by Organization Details LastModified Time 07/07/2023 07/07/2023 Patient presents with anxiety. Mild Anxiety. No medications recommended at this point. may take benadryl as needed for sleep if stuggling with sleep, but over all sleeps well. face to face 40 minutes spent [email or web address] Not available 07/07/2023 22:39:36 Plan of Treatment Reminders Order Date Submit Date Provider Last Modified By Organization Details Last Modified Time Details Appointments None record ed. Lab None record ed. Referral None record ed. Procedures None record ed. Surgeries None record ed. Imaging None record ed. Medication Orders None record ed. Patient TargetsNo targets recorded. Patient Instructions Encounter Date Encounter Id Patient Instructions Last Modified By Organization Details Last Modified Time 07/07/2023 [id number] anxiety disorder : care instructions [email or web address] Not available 07/07/2023 22:39:36 learning about anxiety disorders [email or web address] Not available 07/07/2023 22:39:36 no follow up scheduled at this time. Leona will call office if she feels like she needs to be seen. Will plan of follow up after baby is born. Information on depression/ anxiety given recommend support group that will be starting in September- info given [email or web address] Not available 07/07/2023 22:42:23 Reason for Referral None Reported. Problems Name Problem SNOMED Code Status Onset Date Resolution Date Notes Provider Name and Address Organization Details Recorded Time Anxiety 66898860 Active 023 Whitney Chowdhury, KIA, PMHNP-BC [address], [place], [address], [facility] 21:54:32 Problem Notes None recorded. Procedures Surgical History Date Name Laterality Status Provider Name and Address Organization Details Recorded Time Date of Last Pap Smear completed Whitney Chowdhury CNM, [facility] [address], [place], [address] [place] 07/07/2023 17:42:41 Imaging Results None recorded. Procedure Notes None recorded. Medical Equipment None Reported. Medications Name Sig Start Date Stop Date Status Note LastModified by Organization Details LastModified Time ondansetron HCl 4 mg tablet TAKE 1 TABLET BY MOUTH once As Needed for nausea and vomitin g] 07/07 completed Not Available Not Available Not Available montelukast 10 mg tablet TAKE 1 TABLET BY MOUTH DAILY active Not Available Not Available No t Available Tri-Sprintec (28) 0.18 mg(7)/0.215 mg(7)/0.25 mg(7)-0.035 mg tablet TAKE 1 TABLET BY MOUTH DAILY 07/23 completed Not Available Not Available Not Available Vitals Date Recorded Body weight Heart rate Systolic blood pressure Diastolic blood pressure Provider Name and Address Organization Details Last Updated DateTime 07/07/2023 94170.56 g 97 /min 112 mm[Hg] 75 mm[Hg] Whitney Chowdhury CNM, [facility] [address], [place], [address] 07/07/2023 22:33:45 Social History Question Answer Notes LastModified by Organizat ion Details LastModified Time Tobacco Smoking Status Never Smoker Whitney Chowdhury CNM, [facility] [address], [place], [address] [place] 07/07/2023 17:44:30 What Is Your Level Of Caffeine Consumption? Occasional [email or web address] Information not available 07/07/2023 How Many Times Per Week Do You Exercise? 3-4 Times Per Week Information not available 07/07/2023 Are There Any Guns Present In Your Home? Yes [email or web address] Information not available 07/07/2023 Do You Feel Safe In Your Home? Yes [email or web address] Information not available 07/07/2023 Do You Feel Stressed (tense, Restless, Nervous, Or Anxious, Or Unable To Sleep At Night)? [id number] [email or web address] Information not available 07/07/2023 Do You Or Have You Ever Used Any Other Forms Of Tobacco Or Nicotine? No [email or web address] Information not available 07/07/2023 Do You Have Any Future Plans To Get ? I'm OK Either Way [email or web address] Information not available 07/07/2023 Sex: Unknown Functional Status Question Answer Note LastModified by Organization D etails LastModified Time What is your exercise level? Moderate [email or web address] Information not available 07/07/2023 Mental Status None recorded. Family History Relationship Description Onset Age of this Age Resolved Age Notes LastModified by Organization Details LastModified Time Mother Alcohol abuse [email or web address] Not available 2022 17:43:50 Medical History Condition Response Allergies (Food, seasonal, environmental ) N Other N Thyroid Disease N Blood Transfusion N Drug/Latex Allergies/Reactions N Breast Cancer N Dermatologic Disorders N Depression N COPD N Lung Disease N Developmental or Behavioral Disorders N Defects or Inherited Disease N Breast Problem N Gestational Diabetes N Hematologic disorders N Anesthesia Complications N History of STI N Deep Vein Thrombosis N Polycystic ovary syndrome N Anxiety Disorder N Autoimmune disease N Vision or Eye Problems N Arthritis N Auditory Hallucinations N Infertility N Polyps N History of abnormal pap N Acid Reflux (GERD) N Cancer N Varicosities N Stroke N Neurologic/Epilepsy N Endometriosis N High Cholesterol N Liver Disease N Psychiatric/Mental Health Condition N Schizophrenia N Headaches N Fibromyalgia N Kidney Disease N Heart Problems N Hospitalizations N Learning Disorder N Kidney or Bladder Problems N Thyroid Problems N GI Problems N Acne N ADD/ADHD N Eating Disorder N Anemia N Brain Injury N Art (IVF or FET) N Psychiatric Illness N Ovarian Cancer N Diabetes N Pulmonary (TB, Asthma) N Hepatitis/Liver Disease N Visual Hallucinations N Seizures/Epilepsy N AIDS/HIV N Amnesia N Eczema N Abuse/Domestic Violence N Asthma N Trauma/Violence N GERD/Reflux N Depression/ depression N Heart Disease N Tourette Syndrome N Pre-Eclampsia N Hypertension N Osteoporosis N Thrombophilias N Gynecological History Statement/Question Response Abnormal Pap N Sexually Active? Y STIs/STDs N HPV Vaccine Y Date of Last Pap Smear 01/21/2023 Sexual Problems? N Current Control Method None Obstetrics History GPAL:G 1 P 0 0 0 0 Past Encounters Encounter ID Performer Location Encounter Start Date Encounter Closed Date Diagnosis/Indication Diagnosis SNOMED-CT Code Diagnosis ICD10 Code Diagnosis Note [id number] Whitney Chowdhury CNM, PMP- Main Office [address] [place] [address] 07/07/2023 17:28:24 07/07/2023 22:46:34 Anxiety 14141215 F41.1 recommend continue exercising 3-4 times a week. getting outside when weather nice.worki ng on positivity and affirmatio ns- discussed apps that will send affirmatio ns to her up to 7 times a day for free. affirmatio ns around the her teaching ability.re laxations exercises prior to going into the school. listening to music or something soothing on the route to school Health Concerns Section Related Observation LastModified by Organization Detai ls LastModified Time None Recorded Concern Status LastModified by Organization Details LastModified Time None Recorded Advance Directives Directive None Recorded Payers Encounter Date Sequence Insurance Name Policy Number Policy Yuan Covered Member ID Yuan Member ID Guarantor Name 07/07/2023 1 [facility]: (PP[facility]) [id number] Leona Barnett [id number] Leona Barnett Notes Date Note Type Note Provider Name and Address Organization Details Recorded Time 3 text/html Psychiatry AnxietyReported bypatient.Timing of Symptoms:more than half the time; worse in the morning Anxiety Duration:Started in March when the school year started Anxiety Context:32 weeks . 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 working on her masters degree, remodeling a home. 3 dogs and 1 is a puppy Anxiety Severity:mild Anxiety Associated Symptoms:not nervous or anxious; no excessive fear; no anticipatory fears; no excessive worry; able to control worry; able to relax; no restlessness; no irritability; no panic attacks; no muscle tension; no sleep disturbances; no fatigue; no difficulty concentrating; no diaphoresis Leona is a 23 year old , at [address] Mcginnis for Anxiety. Leona has been struggling with anxiety/panic most days on her drive to work. she experiences racing heart rate. This improves after getting into the school. She is a teacher of 2nd grade. HAs 18 students and is a difficulty group of students. She only experiences this anxiety/panic on weekdays coming to school. Leona is also a student herself working on her masters. rehabing a house and has 3 dogs, 1 being a puppy that takes much of her evening time.Leona has never experienced anxiety in the past. She has never had a psychiatric diagnosis, has never taken any psychiatric medications, never had a psychiatric admission. She has never had a suicide attempt or self- harmed. No history of psychical, emotional, or sexual abuse. Denies any head trauma or seizures. She denies any use presently or in the past of alcohol or drug use. no significant medical history.Family history of mother alcoholismRayanne states her mood to be Unsure . She denies any feelings of worthlessness, hopelessness, helplessness or guilt. She declines isolating self. States energy to be good. Appetite is good. Sleep- some times difficulty falling asleep and admits to racing thoughts at times but able to get 8 hours of sleep a night. Denies any SI or HI. Denies any AH or VH.boyfriend - Guille - supportive. his family is supportive and her father's side of the family is supportive Whitney Chowdhury CNM, PMHNP- [address], [place], [address], [facility] 07/07/2023 22:46:04 OBGyn Episode No OBEpisode recorded.
--- NOTE | 2024-11-20 13:56 | PM.IMHP ---
H&P: HPI History of Present Illness Date/Time: 11/20/24 13:56 Chief Complaint: pt admitted for IOL, hx of section, pt has consented To TOLAC. SVE 1.5cm/70/-2 AROM moderate amount of clear, odorless fluid, IUPC placed, hx anemia. Review of Systems Review of Systems: All systems reviewed & are unremarkable except as noted in HPI and below PMFSH Past Medical History Medical History Asthma Encounter for related examination in second trimester Encounter for supervision of normal first in third trimester Heart palpitations Surgical History Surgical History History of section Family History Family History Mother Alcoholism Sibling Depression Grandparent Alcoholism Diabetes mellitus Heart disease Social History Social History Smoking status: Never smoker Second hand tobacco smoke exposure: No Alcohol intake: former Alcohol use details: Not since Substance use: never Do You Feel Safe in your Home?: Yes Lack of Transportation: No Lack of Food: Never True Current Housing: I Have Housing Concerned About Future Housing: No Difficulty Paying Gas/Electric Bills: No Difficulty Paying for Meds: No Currently Unemployed: No Education: Master's Degree or Higher Difficulty w/ Childcare or Family Care: No Living arrangements: with family Occupation/Education: occupation Gender identity (if verbalized by the patient): Female Sexual Orientation (if Verbalized by the Patient): Straight or Heterosexual Spiritual care concerns: No Meds Home Medications and Allergies Home Medications ?Medication ?Instructions ?Recorded ?Confirmed ?Type albuterol sulfate 90 mcg/actuation 1 puff inhalation Q4H PRN 12/30/21 10/29/24 History aerosol inhaler Shortness Of Breath prenat.vits,casey,opa-yzmf-amwhq 1 tablet PO DAILY 01/07/23 10/29/24 History Allergies Allergy/AdvReac Type Severity Reaction Status Date / Time shellfish derived Allergy Intermediate Swelling Verified 10/29/24 15:51 of Lip/Tongue/Throat Vital Signs Vital Signs - 24 hr 11/20/24 13:00 11/20/24 13:03 11/20/24 13:30 Temperature 36.6 C Pulse Rate 103 H 111 H Blood Pressure 120/73 123/83 Exam Const: General: cooperative and healthy appearing Chest: Chest palpation & inspection: normal inspection of the chest Resp: Effort & Inspection: normal respiratory effort Auscultation: clear to auscultation bilaterally Cardio: Rate: regular rate Rhythm: regular rhythm GI: Inspection: normal to inspection Back/Spine/Pelvis: Back: no CVA tenderness Skin: General skin exam: normal color and no rashes or lesions noted Neuro: General: patient oriented x3 Extrem: General: normal to inspection Psych: Appearance: grossly normal H&P: Results Labs Labs: Short CBC 11/20/24 Range/Units 12:39 WBC 11.1 H (4.5-10.0) K/mm3 Hgb 11.2 L (12.0-15.0) g/dL Hct 35.1 L (37.0-47.0) % Plt Count 243 D (150-375) k/mm3 Assessment and Plan Assessment and plan (1) Delivery by section: Status: Acute Plan TOLAC Anemia co-managing with Dr. Croft
[2024-11-20 14:50] LABS: Syphilis IgG/IgM Antibody Negative (Negative)
[2024-11-20 14:56] LABS: HIV 1/2 Ab P24 Ag Result Negative (Negative)
[2024-11-20] MEDS: LACTATED RINGERS 1,000 ML 999 ML IV CONT ×2 (16:13→22:45)
--- NOTE | 2024-11-20 16:48 | WPDANESEPP ---
Anes - Eval Pre Procedure Procedure: Labor epidural Date/Time: 11/20/24 16:48 Surgeon: Lang Preop Diagnosis: Abdominal pain with contractions Pre Op Diagnosis: Induction of Labor Patient Data Age: 24 Gender: F Height: 1.6 m Weight: 78.1 kg Last Vital Signs Temp 98.3 F 11/20/24 15:58 Pulse 91 11/20/24 16:31 BP 120/74 11/20/24 16:31 Pulse Ox 97 11/20/24 16:42 Allergies Allergy/AdvReac Type Severity Reaction Status Date / Time shellfish derived Allergy Intermediate Swelling Verified 10/29/24 15:51 of Lip/Tongue/Throat Home Medications ?Medication ?Instructions ?Recorded ?Confirmed ?Type albuterol sulfate 90 mcg/actuation 1 puff inhalation Q4H PRN 12/30/21 10/29/24 History aerosol inhaler Shortness Of Breath prenat.vits,casey,cnj-htxb-hssii 1 tablet PO DAILY 01/07/23 11/20/24 History Laboratory Tests 11/20/24 12:39 WBC 11.1 H K/mm3 (4.5-10.0) RBC 4.13 L M/mm3 (4.2-5.4) Hgb 11.2 L g/dL (12.0-15.0) Hct 35.1 L % (37.0-47.0) MCV 85.0 fl (80-100) MCH 27.1 pg (26-34) MCHC 31.9 L g/dl (32-36) RDW 15.1 H % (11.5-14.5) Plt Count 243 D k/mm3 (150-375) MPV 10.4 fl (7.4-10.4) Immature Gran % (Auto) 1.4 H % (0-0.5) Neut % (Auto) 73.0 % (45.5-73.1) Lymph % (Auto) 17.8 L % (18.3-44.2) [place] % (Auto) 6.6 % (2.6-8.5) Eos % (Auto) 0.8 % (0-4.4) Baso % (Auto) 0.4 % (0.2-1.2) Lymph # (Auto) 1.97 K/mm3 (0.9-3.2) [place] # (Auto) 0.7 H K/mm3 (0.1-0.6) Eos # (Auto) 0.1 K/mm3 (0-0.3) Baso # (Auto) 0.0 K/mm3 (0.0-0.1) Abs Immat Gran (auto) 0.15 H K/mm3 (0.00-0.031) Absolute Neuts (auto) 8.1 H K/mm3 (1.3-6.7) Absolute Nucleated RBC 0.000 K/mm3 (0.0-0.012) Nucleated RBC % 0.0 % (0.0-0.2) Syphilis IgG/IgM Ab Negative (Negative) HIV 1&2 Ab/P24 Ag 4thGn Negative (Negative) Blood Type O Positive Antibody Screen Negative : gestational age HCG: positive Patient hx anesthesia problems: none Family hx anesthesia problems: none Results Review: All pre-operative results and documents have been reviewed as part of the pre-operative evaluation. FOR[facility], [facility] Past Medical History Medical History (Updated 11/20/24 @ 16:48 by Chon Hopkins Jr., CRNA) and not yet delivered Encounter for supervision of normal first in third trimester Encounter for related examination in second trimester Heart palpitations Asthma Surgical History Surgical History History of section Family History Family History Mother Alcoholism Sibling Depression Grandparent Alcoholism Diabetes mellitus Heart disease Social History Social History Smoking status: Never smoker Second hand tobacco smoke exposure: No Alcohol intake: former Alcohol use details: Not since Substance use: never Do You Feel Safe in your Home?: Yes Lack of Transportation: No Lack of Food: Never True Current Housing: I Have Housing Concerned About Future Housing: No Difficulty Paying Gas/Electric Bills: No Difficulty Paying for Meds: No Currently Unemployed: No Education: Master's Degree or Higher Difficulty w/ Childcare or Family Care: No Living arrangements: with family Occupation/Education: occupation Gender identity (if verbalized by the patient): Female Sexual Orientation (if Verbalized by the Patient): Straight or Heterosexual Spiritual care concerns: No Exam Day of Procedure 11/20/24 16:48 Patient weight: overweight
[2024-11-20] MEDS: ONDANSETRON INJ 4 MG/2 ML VIAL IV PUSH (20:55)
[2024-11-20] MEDS: ACETAMINOPHEN 500 MG TABLET 1000 MG PO (23:08)
[2024-11-20] MEDS: diphenhydrAMINE HCl INJ 50 MG/ML VIAL IV PUSH (23:09)
[2024-11-20] MEDS: SODIUM CHLORIDE 0.9% IV 300 ML 600 ML I-UTERINE (23:26)
[2024-11-21] VITALS (57 sets, daily range): BP systolic 99–128; BP diastolic 49–77; PULSE 87–202; RESP 12–18; TEMP 36.3–37.1; O2SAT 96–100
[2024-11-21] MEDS: TERBUTALINE SULFATE 1 MG/ML VIAL 0.25 MG SUB-Q
--- NOTE | 2024-11-21 | PM.OBPNLAB ---
Pain Control Date/time seen: 11/21/24 00:00 Comments: SVE 5-6/70/-2 cervix swelling, FHR 4 minute prolonged noted, back to baseline, discussed with pt and will at this time rec for hx of and now intolerance to labor, dr. alexis notified and on his way. pt and agree to the plan
[2024-11-21] MEDS: FAMOTIDINE 20 MG/2 ML VIAL IV PUSH (00:10)
[2024-11-21] MEDS: AZITHROMYCIN 500 MG/NS 250 ML 500 MG/250 ML BAG 250 MG IVPB (00:17)
[2024-11-21] MEDS: ceFAZolin 2 GM/D5W 50 ML 2 GM/50 ML BAG IVPB (01:17)
--- NOTE | 2024-11-21 01:17 | P.PCNOB_ITS ---
OB - Delivery Note Procedure Delivery date: 11/21/24 Pre-op diagnosis: Non-Reassuring Status Post-op Diagnosis: Same Delivery monitor: External FHT and External Uterine Procedure Performed: Repeat Surgeon: Jonathan Croft MD Anesthesia type: Epidural Description of Procedure/Findings: The patient was taken the operating room.? She was prepped and draped in dorsal supine position with a leftward tilt.? This was done after spinal anesthetic was applied.? A low-transverse skin incision was made and carried down till of the fascia with the knife.? The fascial incision was made with the knife.? The fascial incision was extended laterally with Chisholm scissors.? The fascia was tented upward superiorly and inferiorly the rectus muscles were dissected off bluntly.? The rectus muscles were the midline.? The preperitoneal fat and peritoneum were dissected open bluntly at the superior aspect of the rectus muscles.? The peritoneal incision was extended superior and inferior with good position of bladder.? The uterine incision was made with a scalpel down to the level of the amniotic cavity.? The amniotic cavity was entered bluntly.? The was delivered.? The cord was clamped and cut and the infant was handed off to waiting pediatric staff.? Cord bloods were o btained.? The placenta was removed manually.? The uterus was exteriorized.? The uterus was cleared of all clots, debris and membranes.? The uterus was closed in 0 Vicryl running lock fashion.? An imbricating over a was placed along the incision line as well.? The uterus was returned to the abdomen.? The gutters were cleared of all clots and debris.? The fascia was closed with 0 Vicryl running fashion.? The subcutaneous tissue was irrigated pinpoint bleeders were cauterized.? The skin was closed with subcuticular absorbable frances.? The skin incision line was covered with glue.? The patient tolerated the procedure well.? She has taken recovery room in stable condition.? Sponge lap and needle counts were correct x2.? Specimen: No Estimated Blood Loss: 600 Complications: No immediate complications Condition: Stable Disposition: Floor
[2024-11-21] MEDS: OXYTOCIN 30 UNITS/NS 500 ML 30 UNITS/500 ML BAG 125 UNITS IV CONT (02:17)
--- NOTE | 2024-11-21 03:48 | OBPPTRN ---
Patient transferred to post room #288 via stretcher. Support person present. Oriented to unit, room, information board, rooming in, admission packet and security measures. Patient verbalizes understanding.
[2024-11-21] MEDS: ACETAMINOPHEN 325 MG TABLET 650 MG PO ×3 (05:25→18:25)
[2024-11-21] MEDS: KETOROLAC 15 MG/ML VIAL (*BKC) IV PUSH ×3 (06:45→18:24)
[2024-11-21] MEDS: DEXTROSE 5%/0.45% SOD CHL 1,000 ML 125 ML IV CONT (07:11)
[2024-11-21] MEDS: SIMETHICONE 80 MG TAB.CHEW PO ×3 (07:48→16:52)
[2024-11-21] MEDS: MULTIVIT/MIN/PREN/FOL AC/IRON TABLET 1 TAB PO (07:48)
[2024-11-21] MEDS: DOCUSATE SODIUM 100 MG CAPSULE PO ×2 (07:49→16:52)
[2024-11-21] MEDS: LORATADINE 10 MG TABLET PO (08:25)
[2024-11-22] MEDS: ACETAMINOPHEN 325 MG TABLET 650 MG PO ×3 (02:20→15:08)
[2024-11-22] MEDS: IBUPROFEN 600 MG TABLET PO ×3 (02:20→15:08)
--- NOTE | 2024-11-22 04:17 | P.PNOB_ITS ---
OB - PN: Subj Subjective Date/time seen: 11/22/24 04:17 Interval history: pp day 1 doing well passing flatus OB - PN: Obj Data Labs 11/20/24 12:39 OB - PN A/P Plan day: 1 Plan: routine care Time Spent With Patient Time: Total time spent is greater than 50% in coordination of care (as documented) at patient's floor/unit and/or counseling patient: Review of Systems 2 Review of Systems: All systems reviewed & are unremarkable except as noted in HPI and below Exam 2 Const: General: cooperative and healthy appearing Chest: Chest palpation & inspection: normal inspection of the chest Resp: Effort & Inspection: normal respiratory effort Cardio: Rate: regular rate Rhythm: regular rhythm GI: Other: incision CDI
[2024-11-22 04:37] LABS: Basophils Absolute Auto 0.1 K/mm3 (0.0-0.1); Basophils Percent Auto 0.4 % (0.2-1.2); Eosinophils Absolute Auto 0.2 K/mm3 (0-0.3); Eosinophils Percent Auto 1.5 % (0-4.4); Hematocrit 24.7 % (37.0-47.0); Hemoglobin 7.7 g/dL (12.0-15.0); Immature Granulocyte Absolute 0.13 K/mm3 (0.00-0.031); Immature Granulocyte Percent A 1.1 % (0-0.5); Lymphocytes Absolute Auto 1.99 K/mm3 (0.9-3.2); Lymphocytes Percent Auto 16.2 % (18.3-44.2); Mean Corpuscular HGB Conc 31.2 g/dl (32-36); Mean Corpuscular Hemoglobin 26.7 pg (26-34); Mean Corpuscular Volume 85.8 fl (80-100); Mean Platelet Volume 10.4 fl (7.4-10.4); Monocytes Percent Auto 8.4 % (2.6-8.5); Neutrophils Absolute Auto 8.9 K/mm3 (1.3-6.7); Neutrophils Percent Auto 72.4 % (45.5-73.1); Platelet Count Result 194 k/mm3 (150-375); Red Blood Count 2.88 M/mm3 (4.2-5.4); Red Cell Distribution Width 15.4 % (11.5-14.5); White Blood Count 12.3 K/mm3 (4.5-10.0)
[2024-11-22] MEDS: SIMETHICONE 80 MG TAB.CHEW PO ×3 (08:20→16:17)
[2024-11-22] MEDS: DOCUSATE SODIUM 100 MG CAPSULE PO ×2 (08:20→16:17)
[2024-11-22] MEDS: POLYSACCHARIDE IRON COMPLEX 150 MG CAPSULE PO ×2 (08:20→16:16)
[2024-11-22] MEDS: MULTIVIT/MIN/PREN/FOL AC/IRON TABLET 1 TAB PO (08:20)
[2024-11-22 09:15] VITALS: BP 116/67; PULSE 103; RESP 16; TEMP 36.3; O2SAT 98
--- NOTE | 2024-11-22 09:17 | WPDANLDPN2 ---
Anes-Prog Note L&D Date/Time: 11/22/24 09:17 Comfortable throughout: labor and section Neuraxial method: epidural Epidural/Spinal procedure site: clean & non-tender Neuro status: Neuro function grossly intact. Cardiovascular status: normal Respiratory status: normal Airway patency: baseline Mental status: baseline Post-Op hydration status: normal Vital Signs: Last Vital Signs Temp 36.8 C 11/21/24 20:00 Pulse 98 11/21/24 20:00 Resp 12 11/21/24 20:00 BP 101/57 L 11/21/24 20:00 Pulse Ox 97 11/21/24 20:00 O2 Del Method Room Air 11/22/24 08:15 Pain score (VAS): 08/10 I/O: Intake & Output 11/21/24 11/22/24 11/22/24 23:59 07:59 15:59 Intake Total 575 Output Total 500 Balance 75 Post-procedural complaints: none Patient feedback: Patient satisfied with anesthetic care.
--- NOTE | 2024-11-22 09:17 | WPDANLDNPN2 ---
Anes-Prog Note L&D-Neuraxial Date/Time: 11/22/24 09:17 Neuraxial medications: epidural PF morphine Opiod-related complaints: pruritis moderate, treatment effective Patient feedback: Patient satisfied with post-operative pain management.
[2024-11-22] MEDS: IRON SUCROSE COMPLEX 200 MG in SODIUM CHLORIDE 0.9% IV 100 ML 220 MG IVPB (11:33)
[2024-11-22 19:45] VITALS: BP 109/74; PULSE 109; RESP 18; TEMP 36.9; O2SAT 99
[2024-11-23] MEDS: IBUPROFEN 600 MG TABLET PO ×2 (04:04→11:48)
[2024-11-23] MEDS: ACETAMINOPHEN 325 MG TABLET 650 MG PO ×2 (04:04→11:48)
[2024-11-23 07:30] VITALS: BP 106/70; PULSE 97; RESP 18; TEMP 36.6; O2SAT 97
--- NOTE | 2024-11-23 07:34 | P.PNOB_ITS ---
OB - PN: Subj Subjective Date/time seen: 11/23/24 07:34 Interval history: pp day 2 doing well passing flatus OB - PN: Obj Data Labs 11/22/24 04:07 OB - PN A/P Assessment and Plan (1) delivery delivered: Code(s): O82 - Encounter for delivery without indication Status: Acute Plan s/p iron infusion d/c home denies complaints Plan day: 2 Plan: routine care and discharge home Time Spent With Patient Time: Total time spent is greater than 50% in coordination of care (as documented) at patient's floor/unit and/or counseling patient: Review of Systems 2 Review of Systems: All systems reviewed & are unremarkable except as noted in HPI and below Exam 2 Const: General: cooperative, healthy appearing and comfortable Chest: Chest palpation & inspection: normal inspection of the chest Resp: Effort & Inspection: normal respiratory effort Cardio: Rate: regular rate
[2024-11-23] MEDS: MULTIVIT/MIN/PREN/FOL AC/IRON TABLET 1 TAB PO (08:56)
[2024-11-23] MEDS: SIMETHICONE 80 MG TAB.CHEW PO (08:56)
[2024-11-23] MEDS: POLYSACCHARIDE IRON COMPLEX 150 MG CAPSULE PO (08:56)
[2024-11-23] MEDS: LORATADINE 10 MG TABLET PO (08:56)
[2024-11-23] MEDS: DOCUSATE SODIUM 100 MG CAPSULE PO (08:56)
--- NOTE | 2024-11-23 12:36 | PM.OBDSVD ---
DS: Admitting Diagnosis Discharge Date 11/23/24 Admitting Diagnosis IOL DS: Discharge Diagnosis Discharge Diagnosis (1) Delivery by section: Status: Acute OB - DS: Summary OB Procedures : None OB Procedures Intrapartum: OB Procedures: : None Peripartum Data Procedures: Procedures Operation Date: 11/20/24 23:55 Actual Procedure Side Surgeon p Section Jonathan Croft MD Time Spent with Patient Time attestation: Total time spent providing and/or coordinating discharge services: DS: Data Data Completed and Pending Pending studies at discharge: Pending at discharge 11/21/24 02:15 Surgical [PTH] Routine Discharge Plan Discharge Attending physician on discharge: Jonathan Croft Discharging Clinician: Caro Daily Patient Disposition: Home Activity: pelvic rest Diet: regular Patient Instructions: Antibiotic Form Patient Language: Libyan Stand Alone Forms: General Discharge Information Follow-up/Referrals: Caro Daily, CNM [Certified Nurse Medical Office Professional Instructor] - 4 Weeks (vanesa- 1 week post op) Discharge Medications: Continued prenat.vits,casey,lop-oiug-evcbc Tablet 1 tablet PO DAILY albuterol sulfate 90 mcg/actuation HFA aerosol inhaler 1 puff inhalation Q4H PRN (Reason: Shortness Of Breath) Date of admission: 11/20/24 11:54 Primary Care Provider: Stone Barrera Admitting Provider: Jonathan Croft Attending physician on admission: Jonathan Croft Condition: Stable
[2024-11-26 11:15] VITALS: BP 122/78; PULSE 95; RESP 18; TEMP 36.9; O2SAT 100
== END 2024-11-23 13:13 | disposition home or self-care (01) | DRG 788 ==
LOC: ANHLDR 12:03 → ANHOB2 11-21 04:06
PROVIDERS: Admitting Provider Obstetrics & Gynecology; PCP Family Medicine; Referring Provider Advanced Practice Midwife; Visit Provider Obstetrics & Gynecology
PROC: (CPT 59514; principal; 2024-11-20 23:55)
DX: O34.211 Maternal care for low transverse scar from previous cesarean delivery (principal); Z37.0 Single live birth; Z3A.39 39 weeks gestation of pregnancy; O36.8330 Maternal care for abnormalities of the fetal heart rate or rhythm, third trimester, not applicable or unspecified; O99.02 Anemia complicating childbirth; D64.9 Anemia, unspecified
CPT/HCPCS: 36415; 85025; 86593; 86703; 86850; 86900; 86901; 88307; A9270; G0432; J0456; J0690; J1200; J1756; J1885; J2274; J2405; J2590; J2795; J3105; J7030; J7120